=== PATIENT | female | born 1950 | race Caucasian/White ===

== ENCOUNTER 2024-06-30 10:41 | Outpatient (REF) | payer SELFPAY ==
--- OUTSIDE RECORDS SUMMARY | 2024-06-30 12:21 | XMS_ITS | Data Portability ---
Author Organization ID - [facility], [facility] Address [address] [place] [address] Assessment Encounter Date Assessment Date Assessment LastModified by Organization Details LastModified Time 06/11/2024 06/11/2024 Patient seen under general supervision of Dr. Fall who was available but who did not see the patient. HPI: 73-year-old female seen today regarding left lateral hip pain. Patient reports been experiencing difficulty for the past month or so. Patient has similar difficulty more than a year ago and received an injection which worked reasonably well. She denies any recent falls or trauma. Denies pain about the groin. Examination: 73-year-old female in distress alert and oriented. Examination left hip posterior femur warmth noted. Good range of motion without any groin pain elicited. Consultation with the lateral aspect of the overlying greater trochanter noted. Calf is soft. Impression: Trochanteric bursitis left hip Plan: Treatment options were reviewed. Patient faired well with previous cortisone steroid injection. At this time she was offered a repeat injection which accepted was performed today without incident. Postinjection precautions reviewed. Patient also provided with a handout for IT band stretching exercises she will work on her own with. We will formal therapy also discussed. Follow-up concerning this matter on a p.r.n. basis. [facility] speech recognition pmo manager software was used to create portions of this document. An attempt at proofreading has been made to minimize errors. Please call for corrections. [email or web address] Not available 06/11/2024 16:58:41 Plan of Treatment Reminders Order Date Submit Date Provider Last Modified By Organization Details Last Modified Time Details Appointments None recorded. Lab None recorded. Referral physical therapist referral - (THIS PRESCRIPTIO N EXPIRES 30 DAYS FROM DATE LISTED)PHYS ICAL THERAPY REFERRAL S/P SURGERYICD- 10: M70.61 (right), M70.62(Left ), M70.60(Bila teral)1. Core stabilizati on, hip abductor strengtheni ng with focus on eccentric strengtheni ng and balance training.2. Soft tissue modalities including foam rollers as needed.3. Home exercise and stretching program.All ow 2-3 visits a week for 6 weeks.Compl eted by: Loretta 2023 024 [email or web address] [facility], [address] [place], [address], 4 15:02:27 Procedures None recorded. Surgeries None recorded. Imaging XR, hip, unilateral, 2 or 3 view 2023 024 [email or web address] Not available 4 15:02:27 Medication Orders None recorded. Patient TargetsNo targets recorded. Patient InstructionsNo instructions recorded. Reason for Referral Physical Therapist Referral for Trochanteric bursitis of left hip (THIS PRESCRIPTION EXPIRES 30 DAYS FROM DATE LISTED)PHYSICAL THERAPY REFERRAL S/P SURGERYICD-10: M70.61 (right), M70.62(Left), M70.60(Bilateral)1. Core stabilization, hip abductor strengthening with focus on eccentric strengthening and balance training.2. Soft tissue modalities including foam rollers as needed.3. Home exercise and stretching program.Allow 2-3 visits a week for 6 weeks.Completed by: Loretta Referring Physician: Giovanny Roberts, Orthopedic Surgery, [id number] Encounter Date: 05/22/2023 Results Created Date Observation Date Name Description Value Unit Range Abnormal Flag Note LastModifiedBy Organization Detail LastModifiedTime 11/02/19 24 10/09/2020 imagi ng/di agnos tic resul t No observ ation record ed. [email or web address] Not Available 10/04 02:39:22 11/02/19 24 10/07/2020 imagi ng/di agnos tic resul t No observ ation record ed. [email or web address] Not Available 10/04 02:39:23 11/02/19 24 11/10/2020 imagi ng/di agnos tic resul t No observ ation record ed. [email or web address] Not Available 10/04 02:39:28 Result Notes None recorded. Problems Name Problem SNOMED Code Status Onset Date Resolution Date Notes Provider Name and Address Organization Details Recorded Time Pain of right hip joint 755889420692245 Active 2020 Status : 'A'; Not Available [facility] 4 12:12:25 Problem Notes None recorded. Procedures Surgical History Date Name Laterality Status Provider Name and Address Organization Details Recorded Time 5 JZHip Inj completed Blue Garcia PA-C [address], [place], [address], [facility] 06/11/2024 16:57:06 4 Hip Joint/Bursa Aspiration completed Giovanny Roberts MD [address], [place], [address], [facility] 05/22/2023 17:13:25 Imaging Results Imaging Date Name Status LastModified by Organiz ation Details LastModified Time 10/09/2020 imaging/diag nostic result completed Information not available 11/02/2023 02:39:22 10/07/2020 imaging/diag nostic result completed Information not available 11/02/2023 02:39:23 11/10/2020 imaging/diag nostic result completed Information not available 11/02/2023 02:39:28 Procedure Notes None recorded. Medical Equipment None Reported. Allergies Allergen ID Allergen Name Allergen Category Reaction Reaction Severity Criticality Documentation Date Start Date Code Code System Note Provider Name and Address Organization Details Recorded Time 36314 metformin hydrochlo ride medicatio n Not available Not available Not available 05/06/20232016 69735 3 RxNorm Not Available [facility] 4 12:44:57 Medications Name Sig Start Date Stop Date Status Note LastModified by Organization Details LastModified Time amoxicillin 500 mg capsule TAKE 4 CAPS BY MOUTH ONE HOUR PRIOR TO APPOINTMENT active Not Available Not Available Not Available glipizide ER 5 mg tablet, extended release 24 hr TAKE 2 TABLETS BY MOUTH EVERY DAY active Not Available Not Available No t Available clopidogrel 75 mg tablet TAKE 1 TABLET BY MOUTH EVERY DAY active Not Available Not Available No t Available prednisolone acetate 1 % eye drops,suspen reg INSTILL 1 DROP INTO BOTH EYES TWICE A DAY DIRECTED active Not Available Not Available Not Available glipizide ER 2.5 mg tablet, extended release 24 hr TAKE 1 TABLET BY MOUTH TWICE A DAY active Not Available Not Available No t Available levothyroxin e 50 mcg tablet TAKE 2 TABLETS BY MOUTH ON THE WEEKEND AND 1 TABLET ON WEEKDAYS active Not Available Not Available No t Available pseudoephedr ine-guaifene sin ER 80-700 mg tablet,exten ded release 1-2 Tabs every 4-6 hours as needed for pain 2007 active Statu s: 'Curr ent'; Not Available Not Available Not Available brimonidine 0.2 % eye drops INSTILL 1 DROP IN THE LEFT EYE TWICE A DAY active Not Available Not Available Not Available dorzolamide 22.3 mg-timolol 6.8 mg/mL eye drops INSTILL ONE DROP INTO EACH EYE TWICE A DAY active Not Available Not Available Not Available neomycin 3.5 mg/g-polymyx in B 10,000 unit/g-dexam eth 0.1 % eye oint APPLY 1/4 INCH TO BOTH EYES DIRECTED active Not Available Not Available Not Available ezetimibe 10 mg tablet TAKE 1 TABLET BY MOUTH EVERY DAY active Not Available Not Available No t Available rosuvastatin 20 mg tablet TAKE 1 TABLET BY MOUTH EVERY DAY AT BEDTIME active Not Available Not Available No t Available duloxetine 30 mg capsule,taran yed release TAKE 1 CAPSULE BY MOUTH EVERY DAY active Not Available Not Available No t Available oxycodone HCl-oxycodon e-ASA 1 every 4 - 6 hours as needed DO NOT DRIVE WHILE ON THIS MEDICATION 2020 active Statu s: 'Curr ent'; Not Available Not Available Not Available OneTouch Verio test strips USE DIRECTED TO MONITOR GLUCOSE TWICE A DAY active Not Available Not Available Not Available OneTouch Delica Plus Lancet 33 gauge USE DIRECTED TO MONITOR GLUCOSE TWICE A DAY active Not Available Not Available Not Available OneTouch Verio Reflect Meter USE DIRECTED TO MONITOR GLUCOSE TWICE A DAY active Not Available Not Available Not Available Ozempic 1 mg/dose (4 mg/3 mL) subcutaneous pen injector 1 MG SUBCUTANEOU S INJECTION EVERY WEEK,X4 WEEK(S) active Not Available Not Available No t Available Ozempic 0.25 mg or 0.5 mg (2 mg/3 mL) subcutaneous pen injector INJECT 0.5 MG SUBCUTANEOU SLY EVERY WEEK,ROTATE INJECTION SITES active Not Available Not Available No t Available Vitals Date Recorded Body height Body mass index (BMI) Body weight Provider Name and Address Organization Details Last Updated DateTime 05/22/2023 157.48 cm 36.6 kg/m2 13520.47 g LORETTA MANFORD [facility] 05/22/2023 10:07:33 Date Recorded Body height Body mass index (BMI) Body weight Provider Name and Address Organization Details Last Updated DateTime 06/11/2024 157.48 cm 34.6 kg/m2 34652.96 g Chelle Luis Miguel [facility] 06/11/2024 16:14:21 Social History None recorded. Functional Status None recorded. Mental Status None recorded. Family History Nothing Reported. Medical History No medical history recorded. Gynecological HistoryNo gynecological history recorded. Obstetrics History GPAL:G 0 P 0 0 0 0 Past Encounters Encounter ID Performer Location Encounter Start Date Encounter Closed Date Diagnosis/Indication Diagnosis SNOMED-CT Code Diagnosis ICD10 Code Diagnosis Note [id number] MD Gris Crisostomo [address] [place] [id number] 05/22/2023 09:53:55 06/10/2023 15:02:27 Pain of hip region 82261345 M25.559 Trochanter ic bursitis of left hip [id number] 64572 M70.62 [id number] GRE[facility] [address] [place] [id number] 06/11/2024 15:59:06 06/22/2024 11:48:29 Trochanteric bursitis of left hip [id number] 47295 M70.62 Health Concerns Section Related Observation LastModified by Organization Detai ls LastModified Time None Recorded Concern Status LastModified by Organization Details LastModified Time None Recorded Advance Directives Directive None Recorded Payers Encounter Date Sequence Insurance Name Policy Number Policy Florentino Covered Member ID Florentino Member ID Guarantor Name 05/22/2023 1 [employer] (MEDICARE REPLACEMENT PPO) [id number] [place] Kelsy Schaeffer [id number] Kelsy Schaeffer 06/11/2024 1 [employer] (MEDICARE REPLACEMENT PPO) [id number] [place] Kelsy Schaeffer [id number] Kelsy Schaeffer Notes Date Note Type Note Provider Name and Address Organization Details Recorded Time 05/22/2023 text/html PROBLEM:left hip trochanteric bursitis HISTORY:the patient is a 72-year-old female who presents today for evaluation of her left hip. She reports 6 months of ongoing lateral hip pain. She denies any groin pain. She denies any buttock pain. She has a previous total knee performed by Dr. Cazares. She has difficulty sleeping on that side. She has lateral tenderness. The patient's hip symptom profile form was reviewed and included in the record. PFMSH and ROS have been reviewed, updated, and is located in the patient? s chart. PAST MEDICAL HISTORY:Past medical history is significant for diabetes, TIA, anxiety, thyroid disease and glaucoma PAST SURGICAL HISTORY:Past surgical history includes left total knee, right hip bipolar arthroplasty MEDICATIONS:List is available for review in the chart . ALLERGIES:Patient reports an allergy to metformin and Surgical glue. Does not report an allergy to metal, latex, Iodine, tape, or adhesives. SOCIAL HISTORY:the patient is retired. She quit smoking in 1992. She does not consume alcohol or illegal drugs. She is . She sees a dentist regularly. She has stairs at home. PHYSICAL EXAMINATION:Please see vitals recorded below Mental status: Alert and lucid. Normal insight, affect, and grooming.SCHOOL PSYCHOLOGIST: Gross motor coordination is intact. No spasticity or clonus noted.Extremities: Calves are soft and non-tender. Skin intact. Palpable pedal pulses equal bilaterally.Peripher al vascular, lymphatic examination, skin, neurological coordination, reflexes, sensation are within normal limits. ORTHOPEDIC EXAMINATION:Negative SLR tests bilaterally. Full ROM of both knees without pain. the patient has minimal pain with internal/external rotation of her left hip. She has point tenderness laterally, which is reproductive her symptoms. She is a negative Stinchfield test. IMAGING:Previously obtained X-rays reviewed in the office today on [facility] PACS: AP pelvis, Marking AP of the {{right left* bilate ral}} hip, and Direct Lateral of the {{right left* bilate ral}} Hip. Demonstrate mild osteoarthritis of the Left hip. there is appropriately positioned the patient's right bipolar arthroplasty with moderate acetabular arthritis, but without erosion. IMPRESSION:left hip trochannteric bursitis. PLAN:I reviewed with the patient surgical and nonsurgical means to control symptoms. The patient's pain is largely lateral in nature. She is point tenderness over this point over this area. She is difficulty sleeping on that side. I reviewed with her surgical and nonsurgical means to control symptoms. Ultimately, I recommended we proceed initially with an intrabursal injection. We will follow that up with a short course of physical therapy for stretching and strengthening. She understands she repeat corticosteroid as often as every 3 months. The patient knows I will be happy to meet with them again at any time in order to review any additional questions or concerns that they might have. Patient was satisfied with this plan. I attempted to answer all of the patient's questions. [facility] speech recognition pmo manager software was used to create portions of this document. An attempt at proofreading has been made to minimize errors. Please call for corrections. Giovanny Roberts MD [address] [place] [address] [address], [place], [address], [facility] [place] [facility] 05/22/2023 17:19:40 OBGyn Episode No OBEpisode recorded.
--- OUTSIDE RECORDS SUMMARY | 2024-06-30 12:21 | XMS_ITS | Clinical Summary ---
Author Organization [facility] Address [address] [place] [address] Care Team Providers Care Grinding Wheel Facer Name Role Phone Brigitte Conn MD Primary Care Provider [phone] Allergies Active Allergy Reactions Criticality Noted Date Comments Atorvastatin Other (See Comments) 02/08/2016 Metformin And Related Anaphylaxis High 10/07/2020 Medications Medication Sig Dispensed Refills Start Date End Date Status ALPRAZolam (XANAX) 0.5 MG tablet TAKE 1 TAB(S) TWICE DAILY NEEDED FOR ANXIETY 0 09/20/2020 Active brimonidine (ALPHAGAN) 0.2 % ophthalmic solution Place 1 drop into the left eye 2 (two) times a day. 0 09/14/2020 Active clopidogrel (PLAVIX) 75 MG tablet Take 1 tablet by mouth daily. 0 04/20/2020 Active dorzolamide-timolol (COSOPT) 22.3-6.8 MG/ML ophthalmic solution Place 1 drop into both eyes daily. 0 09/27/2020 Active levothyroxine (SYNTHROID) tablet 75 mcg Take 1 tablet by mouth daily. 0 03/20/2018 Active Multiple Vitamin (Multi Vitamin) TABS Take by mouth. 0 Active rosuvastatin (CRESTOR) tablet 20 mg Take 20 mg by mouth daily. 0 09/20/2020 Active meloxicam (MOBIC) 15 MG tablet Take 1 tablet (15 mg total) by mouth daily. 30 tablet 3 06/12/2021 Active Active Problems Problem Noted Date Diagnosed Date Pain in hip region after hip replacement 022 Status post hip replacement, right 11/03/2020 Traumatic complete tear of right rotator cuff Resolved Problems Problem Noted Date Diagnosed Date Resolved Date Hip fracture requiring opera tive repair, right, closed, initial encounter 10/07/2020 021 Social History Tobacco Use Types Packs/Day Years Used Date Smoking Tobacco: Former Smokeless Tobacco: Never Alcohol Use Standard Drinks/Week Comments Not Currently 0 (1 standard drink = 0.6 oz pur e alcohol) Sex and Gender Information Value Date Recorded Sex Assigned at Female 10/07/2020 9:12 PM EDT Gender Identity Not on file Sexual Orientation Not on file Job Start Date Occupation Industry Not on file Not on file Not on file Last Filed Vital Signs Vital Sign Reading Time Taken Comments Blood Pressure 139/76 10/11/2020 7:40 AM EDT Pulse 72 07/10/2021 1:39 PM EDT Temperature 36.4 ??C (97.5 ??F) 07/10/2021 1:39 PM ED T Respiratory Rate 20 10/11/2020 7:40 AM EDT Oxygen Saturation 92% 10/11/2020 8:15 AM EDT Inhaled Oxygen Concentration - - Weight 89.8 kg (198 lb) 07/10/2021 1:39 PM EDT Height 157.5 cm (5' 2 ) 07/10/2021 1:39 PM EDT Body Mass Index 36.21 07/10/2021 1:39 PM EDT Plan of Treatment Health Maintenance Due Date Last Done Comments Hepatitis C Screening 1949 Depression Screening 1961 BMI Counseling 12/04/1967 Diabetes: Eye Exam (No Retinopathy) 12/04/1967 Diabetes: Foot Exam 12/04/1967 Diabetes: Microalbumin Test 12/04/1967 Preventative Health Evaluation 12/04/1967 Colon Cancer Screening (Colonoscopy) 1994 Breast Cancer Screening (Mammogram) 12/04/1999 Fall Risk Assessment 2014 Osteoporosis Screening (DEXA Scan) 2014 Hemoglobin A1C Due 04/10/2021 10/08/2020 COVID-19 Vaccine ( season) 2023 12/27/2020, 06/10/2020, 05/20/2020 Influenza Vaccine (#1) 2023 , 11/20/2019, 11/20/2019, Additional history exists DTap / Tdap / Td (3 - Td or Tdap) 08/17/2024 08/17/2014, 12/02/2010, 01/09/2005 RSV Adult > 60+ Yrs or (1 - 1-dose 75+ series) 2024 Pneumococcal Vaccine Completed 01/29/2017, 08/19/2015, 08/18/2014, Additional history exists Shingrix-Zoster Vaccine Completed 06/02/2021, 02/16 Hepatitis B Vaccines Aged Out No long er eligible based on patient's age to complete this topic RSV Ped < 20 months Aged Out No longe r eligible based on patient's age to complete this topic Medical Devices Implanted Type Area General Cleaner Device Identifier Shelf Expiration Date Model / Serial / Lot Uhr Wh[place]ore Head Bipolar Component Implanted:Qty: 1 on 10/09/2020 by Rafael Best MD at [facility] Location Total Joint Right: Hip [facility] 06/07/2025 [id number] / / [id number] Size 4 Accolade Ii 127 Deg Stry-How [id number] - [id number] Implanted:Qty: 1 on 10/09/2020 by Rafael Best MD at [facility] Location Total Joint Right: Hip [facility] 08/29/2025 [id number] / / [id number] Hip Hd Cocr V40 Lfit 26mm 0 Stry-How [id number] - [id number] Implanted:Qty: 1 on 10/09/2020 by Rafael Best MD at [facility] Location Total Joint Right: Hip [facility] 08/10/2025 [id number] / / [id number] Advance Directives For more information, please contact: [phone] Latest Code Status on File Code Status Date Activated Date Inactivated Comments Full Code 10/09/2020 8:35 AM 10/11/2020 8:44 PM This c ode status was ascertained in the following way: discussion with patient . Code Status History Code Status Date Activated Date Inactivated Comments Full Code 10/08/2020 12:19 AM 10/09/2020 8:35 AM This c ode status was ascertained in the following way:discussed . Care Teams Grinding Wheel Facer Relationship Specialty Start Date End Date Brigitte Conn MD PCP - General Internal Medicine 10/07/20
--- OUTSIDE RECORDS SUMMARY | 2024-06-30 12:21 | XMS_ITS | Data Portability ---
Author Organization [facility] Main Office Address [address] 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 Plan of Treatment Reminders Order Date Submit Date Provider Last Modified By Organization Details Last Modified Time Details Appointments None record ed. Lab hemogl obin A1C, finger stick 2015 016 [email or web address] In-Office Order, Internal Use Only DO Not Attach Compendium DO Not Attach Compendium, Do Not Delete/merge, [id number] 6 16:09:39 strept ococcu s group A, cultur e, isolat e 2015 016 [email or web address] Not available 6 09:48:23 rapid strep group A, throat 2015 016 [email or web address] In-Office Order, Internal Use Only DO Not Attach Compendium DO Not Attach Compendium, Do Not Delete/merge, [id number] 6 16:48:03 T4, free, serum - copy all labs to Dr Danitza estevez 2015 016 MONICA Not available 6 12:47:04 TSH, serum or plasma - copy all labs to Dr Danitza estevez 2015 016 MONICA Not available 6 12:47:04 ALT (doug chang), serum or plasma 2015 016 [email or web address] Not available 6 13:10:39 lipid panel, serum 2015 MONICA Not available 6 12:42:21 ALT (doug chavez eugenio chang), serum or plasma 2015 016 MONICA Not available 6 12:42:21 CK (creat ine kinase ), total, serum 2015 016 MONICA Not available 6 12:42:22 Referral pulmon ologis t referr al - strong FH of lung cancer / hx of smokin g 30 yrs ago/pt wants to d/w pulmon amarjit LORD her option s 2015 MONICA [facility] Pulmonary & Critical Care Medicine, [address], [place], [address], 6 08:14:25 Procedures nebuli zer treatm ent (PROC) 2015 016 [facility] In-Office Order, Internal Use Only DO Not Attach Compendium DO Not Attach Compendium, Do Not Delete/merge, 6 16:54:36 Surgeries None record ed. Imaging x-ray, chest, 2 view - cough, shortn ess of breath , rule out pneumo onia, inters titial proces s, CHF 2015 016 [facility] In-Office Order, Internal Use Only DO Not Attach Compendium DO Not Attach Compendium, Do Not Delete/merge, 6 16:54:36 electr ocardi ogram 2015 016 [facility] In-Office Order, Internal Use Only DO Not Attach Compendium DO Not Attach Compendium, Do Not Delete/merge, 6 16:54:36 Medication Orders flutic asone propio bharati 50 mcg/ac tuatio n nasal spray, suspen reg 2015 016 [facility], [address] [place], [address], 6 16:54:37 ProAir RespiC lick 90 mcg/ac tuatio n breath activa toni 2015 016 [facility] No Pharmacy On File - Paper Print Out, No RX On File, [id number] 6 16:54:37 ProAir HFA 90 mcg/ac tuatio n aeroso l inhale r 2015 016 [facility] No Pharmacy On File - Paper Print Out, No RX On File, [id number] 6 16:54:37 Cherat ussin AC 10 mg-100 mg/5 mL oral liquid 2015 016 [email or web address] [facility], [address] [place] [address], [address], 6 16:28:53 amoxic illin 875 mg tablet 2015 016 [email or web address] [facility], [address] [place], [address], 6 14:15:33 Flonas e Allerg y Relief 50 mcg/ac tuatio n nasal spray, suspen reg 2015 016 INTERFACE [facility], [address] [place] [address], [address], 6 16:48:05 Aspir- Low 81 mg tablet ,delay ed releas e 2015 016 mdalessandro [facility], [address], [place], [address], 6 17:15:47 pravas tatin 10 mg tablet 2015 016 mdalessandro [facility], [address], [place], [address], 6 17:15:46 Patient Targets Encounter Date Encounter Id Patient Goals Patient Target Last Modified By Organization Details Last Modified Time 05/12/2015 [id number] Ongoing of Microalbumin/Cr eatinine Ratio yearly Not available Not available Not available Ongoing of Blood Pressure 140 / 90 Not available Not available Not available Ongoing of Hemoglobin A1C 2 times per yr Not available Not available Not available Ongoing of Hemoglobin A1C <7 Not available Not available Not available Ongoing of LDL Direct <100 Not available Not available Not available Ongoing of Cholesterol, LDL <100 Not available Not available Not available Pt advised and agrees to do moderate exercise (such as walking) for approximately 150 minutes per week; to decrease carbohydrate intake (25 % of total carbohydrates or less); and to monitor blood glucose as directed Will bring meter and/or readings to appointments. [email or web address] Not available 05/12/2015 17:15:47 Patient Instructions Encounter Date Encounter Id Patient Instructions Last Modified By Organization Details Last Modified Time 05/12/2015 [id number] Medications/OTC/ herbal therapies/supple ments were reviewed at this visit with patient and or caregiver and reconciled. Medications /OTC/herbal therapies/supple ments reviewed with patient and or caregiver, including potential side effects, drug interactions, instructions for taking, and the consequences of not taking medication. Discuss with patient to determine any barriers to medication adherence such as side effects from medication or cost of medication. [email or web address] Not available 05/12/2015 15:48:17 06/22/2015 [id number] sore throat: care instructions [email or web address] Not available 06/22/2015 16:48:03 06/27/2015 [id number] Medications (OTC, herbal therapies, supplements) reviewed and reconciled with patient and or caregiver, including potential side effects, drug interactions, instructions, and the consequences of not taking medication. Reviewed potential barriers to medication adherence, such as side effects from medication or cost of medication. mdalessandro Not available 06/27/2015 15:58:39 08/03/2015 [id number] allergies: care instructions [email or web address] Not available 08/11/2015 16:54:36 managing your allergies: care instructions [email or web address] Not available 08/11/2015 16:54:36 cough: care instructions [email or web address] Not available 08/11/2015 16:54:36 08/19/2015 [id number] Lung Cancer Screening mdalessandro Not available 08/19/2015 15:05:16 Medications (OTC, herbal therapies, supplements) reviewed and reconciled with patient and or caregiver, including potential side effects, drug interactions, instructions, and the consequences of not taking medication. Reviewed potential barriers to medication adherence, such as side effects from medication or cost of medication. 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 F amily history of malignant neoplasm of lung strong FH of lung cancer/ hx of smoking 30 yrs ago/pt wants to d/w pulmonary MD her options Referring Physician: Jessie Funes, Internal Medicine, Encounter Date: 08/19/2015 Results Created Date Observation Date Name Description Value Unit Range Abnormal Flag Note LastModifiedBy Organization Detail LastModifiedTime 08/03/19 16 08/04/2015 nebul izer treat ment (PROC ) Improvement after Treatment Not Available In-Off ice Order Internal Use Only DO Not Attach Compendium DO Not Attach Compendium, Do Not Delete/merge, [id number] 08/03/2015 14:49:13 08/03/19 16 08/03/2015 elect rocar diogr am Rate & Rhythm Not Available In-Off ice Order Internal Use Only DO Not Attach Compendium DO Not Attach Compendium, Do Not Delete/merge, [id number] 08/03/2015 14:30:05 08/03/19 16 08/03/2015 elect rocar diogr am QRS Not Available In-Office Order Internal Use Only DO Not Attach Compendium DO Not Attach Compendium, Do Not Delete/merge, [id number] 08/03/2015 14:30:05 08/03/19 16 08/03/2015 elect rocar diogr am NM Interval Not Available In-Off ice Order Internal Use Only DO Not Attach Compendium DO Not Attach Compendium, Do Not Delete/merge, [id number] 08/03/2015 14:30:05 08/03/19 16 08/03/2015 elect rocar diogr am QRS Duration Not Available In-Of fice Order Internal Use Only DO Not Attach Compendium DO Not Attach Compendium, Do Not Delete/merge, [id number] 08/03/2015 14:30:05 08/03/19 16 08/03/2015 elect rocar diogr am QT Interval Not Available In-Off ice Order Internal Use Only DO Not Attach Compendium DO Not Attach Compendium, Do Not Delete/merge, [id number] 08/03/2015 14:30:05 06/27/19 16 06/27/2015 hemog lobin A1C, beth hicks k HA1C 8.9 % 4-6 Not Available In-Office Order Internal Use Only DO Not Attach Compendium DO Not Attach Compendium, Do Not Delete/merge, [id number] 06/27/2015 15:58:39 06/22/19 16 06/22/2015 rapid strep group A, throa t Strep negati ve Not Available In-Office Order Internal Use Only DO Not Attach Compendium DO Not Attach Compendium, Do Not Delete/merge, 06/22/2015 16:03:32 05/28/19 16 05/28/2015 ALT (thea ine amino trans feras e), serum or plasm a ALT 11 U/L (0-31) Not Available [facility] (Centralized Electronic Ordering - All Locations) Patient Can Go To The Location Of Their Choice, 05/28/2015 12:42:21 05/28/1905/28/2015 lipid panel , serum cholesterol, total 181 mg/dL (<200) Not Available [facility] (Centralized Electronic Ordering - All Locations) Patient Can Go To The Location Of Their Choice, 05/28/2015 12:42:21 05/28/19 16 05/28/2015 lipid panel , serum triglyceride 189 mg/dL (<150) high Not Available [facility] (Centralized Electronic Ordering - All Locations) Patient Can Go To The Location Of Their Choice, 05/28/2015 12:42:21 05/28/19 16 05/28/2015 lipid panel , serum HDL chol 53 mg/dL (>39) Not Available [facility] (Centralized Electronic Ordering - All Locations) Patient Can Go To The Location Of Their Choice, 05/28/2015 12:42:21 05/28/19 16 05/28/2015 lipid panel , serum LDL cholesterol, calculated 90 mg/dL (0-130 ) Not Available [facility] (Centralized Electronic Ordering - All Locations) Patient Can Go To The Location Of Their Choice, 05/28/2015 12:42:21 05/28/19 16 05/28/2015 lipid panel , serum non HDL cholesterol (calc) 128 mg/dL (<160) Not Available [facility] (Centralized Electronic Ordering - All Locations) Patient Can Go To The Location Of Their Choice, 05/28/2015 12:42:21 05/28/19 16 05/28/2015 CK (crea sophia kinnisa e), total , serum CK,total only 87 U/L (0-190 ) Not Available [facility] (Centralized Electronic Ordering - All Locations) Patient Can Go To The Location Of Their Choice, 05/28/2015 12:42:22 05/28/19 16 05/28/2015 T4, free, serum free T4 0.88 NG/dL (0.70- 1.80) Not Available [facility] (Centralized Electronic Ordering - All Locations) Patient Can Go To The Location Of Their Choice, 05/28/2015 12:47:04 05/28/19 16 05/28/2015 TSH, serum or plasm a TSH 2.66 mIU/m L (0.40- 4.00) Not Available [facility] (Centralized Electronic Ordering - All Locations) Patient Can Go To The Location Of Their Choice, 05/28/2015 12:47:04 06/22/19 16 06/22/2015 strep tococ cus group A, tl stanley specimen description THROAT SWAB Not Available [facility] (Centralized Electronic Ordering - All Locations) Patient Can Go To The Location Of Their Choice, 06/24/2015 07:31:05 06/22/19 16 06/22/2015 strep tococ cus group A, tl stanley special requests NONE Not Available [facility] (Centralized Electronic Ordering - All Locations) Patient Can Go To The Location Of Their Choice, 06/24/2015 07:31:05 06/22/19 16 06/24/2015 strep tococ cus group A, tl stanley culture NO GROUP A BETA HEMOLY TIC STREPT OCOCCI ISOLAT ED Not Available [facility] (Centralized Electronic Ordering - All Locations) Patient Can Go To The Location Of Their Choice, 06/24/2015 07:31:05 06/22/19 16 06/24/2015 strep tococ cus group A, cultu re, throa t report status FINAL 2015 Not Available [facility] (Centralized Electronic Ordering - All Locations) Patient Can Go To The Location Of Their Choice, [id number] 06/24/2015 07:31:05 06/03/19 16 06/01/2015 vivianai jamel/sheila husain tic resul t No observ ation record ed. [facility] ([place] [facility] Only) [address], [place], [address], 06/22/2015 16:48:04 08/03/19 16 08/03/2015 chest 2 views front al and lat Chest 2 Views Fronta l and Lat INDICA TION: cough, sob CLINIC AL QUESTI ON: Pneumo johan COMPAR VANITA: None. FINDIN GS: LINES AND TUBES: None. LUNGS AND PLEURA : Hazy opacit ies are noted in the LEFT upper lobe and also LEFT lower lobe. No effusi on or pneumo thorax . HEART, MEDIAS TINUM AND DAVID: Normal . BONES AND SOFT TISSUE S: No acute findin gs. IMPRES REG: Hazy opacit ies in the LEFT upper lobe and LEFT lower lobe which may reflec t early pneumo johan. A [place] kierra ding has been commun icated via the [place] system on 08/03/19 16 4:17 PM, [place] e [place] [id number]. WSN: [id number] Dictat ed By: Peggy Ortiz MD, V Dictat ed Date/T tolu: 4:17 pm Review ed By: Peggy Ortiz MD, V Signed By: Peggy Ortiz MD, V Signed Date/T tolu: 4:17 pm Transc ribed By: BRITTA Transc ribed Date/T tolu: 4:17 pm Patien t Class: Outpat ient [email or web address] [facility] (Centralized Electronic Ordering - All Locations) Patient Can Go To The Location Of Their Choice, [id number] 08/11/2015 16:54:37 08/03/19 16 08/03/2015 chest 2 views front al and lat Chest 2 Views Fronta l and Lat INDICA TION: cough, sob CLINIC AL QUESTI ON: Pneumo johan COMPAR VANITA: None. FINDIN GS: LINES AND TUBES: None. LUNGS AND PLEURA : Hazy opacit ies are noted in the LEFT upper lobe and also LEFT lower lobe. No effusi on or pneumo thorax . HEART, MEDIAS TINUM AND DAVID: Normal . BONES AND SOFT TISSUE S: No acute findin gs. IMPRES REG: Hazy opacit ies in the LEFT upper lobe and LEFT lower lobe which may reflec t early pneumo johan. A [place] kierra ding has been commun icated via the [place] system on 08/03/19 16 4:17 PM, Kierra ding ID [id number]. WSN: [id number] Dictat ed By: Peggy Ortiz MD, V Dictat ed Date/T tolu: 4:17 pm Review ed By: Peggy Ortiz MD, V Signed By: Peggy Ortiz MD, V Signed Date/T tolu: 4:17 pm Transc ribed By: BRITTA Transc ribed Date/T tolu: 4:17 pm Patien t Class: Outpat ient lu [email or web address] [facility] (Outpt Imaging) [address] , [place], [address], 08/11/2015 16:54:37 08/03/19 16 08/03/2015 x-ray , chest , 2 view No observ ation record ed. lu rodgers Not Available 08/11/2015 16:54:37 08/09/19 16 elect rocar diogr am No observ ation record ed. [email or web address] In-Office Order Internal Use Only DO Not Attach Compendium DO Not Attach Compendium, Do Not Delete/merge, [id number] 08/11/2015 16:54:37 08/13/19 16 08/13/2015 chest 2 views front al and lat Chest 2 Views Fronta l and Lat INDICA TION: abnorm al findin gs prior xray COMPAR VANITA: August 03, 2015 FINDIN GS: LINES AND TUBES: None. LUNGS AND PLEURA : There has been interv al improv ement in the previo usly descri bed left upper and lower lobe hazy opacit ies. A linear opacit y in the left mid to lower lung is probab ly subseg mental atelec tasis or scarri ng. No new focal consol idatio n. No effusi on or pneumo thorax . HEART, MEDIAS TINUM AND DAVID: Normal . BONES AND SOFT TISSUE S: No acute findin gs. IMPRES REG: Since August 03, 2015: 1. Marked interv al improv ement in the previo usly descri bed left upper and lower lobe opacit ies which may reflec t early pneumo johan. 2. Linear subseg mental atelec tasis or scarri ng in the left mid to lower lung. No new focal consol idatio n. WSN: [id number] Dictat ed By: Cara Coello MD Dictat ed Date/T tolu: 9:03 am Review ed By: Cara Coello MD Signed By: Cara Coello MD Signed Date/T tolu: 9:03 am Transc ribed By: BRITTA Transc ribed Date/T tolu: 9:03 am Patien t Class: Outpat ient [email or web address] [facility] (Centralized Electronic Ordering - All Locations) Patient Can Go To The Location Of Their Choice, [id number] 08/19/2015 15:21:49 08/13/19 16 08/13/2015 chest 2 views front al and lat Chest 2 Views Fronta l and Lat INDICA TION: abnorm al findin gs prior xray COMPAR VANITA: August 03, 2015 FINDIN GS: LINES AND TUBES: None. LUNGS AND PLEURA : There has been interv al improv ement in the previo usly descri bed left upper and lower lobe hazy opacit ies. A linear opacit y in the left mid to lower lung is probab ly subseg mental atelec tasis or scarri ng. No new focal consol idatio n. No effusi on or pneumo thorax . HEART, MEDIAS TINUM AND DAVID: Normal . BONES AND SOFT TISSUE S: No acute findin gs. IMPRES REG: Since August 03, 2015: 1. Marked interv al improv ement in the previo usly descri bed left upper and lower lobe opacit ies which may reflec t early pneumo johan. 2. Linear subseg mental atelec tasis or scarri ng in the left mid to lower lung. No new focal consol idatio n. WSN: [id number] Dictat ed By: Cara Coello MD Dictat ed Date/T tolu: 9:03 am Review ed By: Cara Coello MD Signed By: Cara Coello MD Signed Date/T tolu: 9:03 am Transc ribed By: BRITTA Transc ribed Date/T tolu: 9:03 am Patien t Class: Outpat ient [email or web address] [facility] (Outpt Imaging) [address] [place], [address], 08/19/2015 15:21:50 06/08/19 17 06/05/2016 MAMMO , scree dillon, bilat eral No observ ation record ed. [email or web address] [facility] ([place] [facility] Only) [address] [place], [address], 06/15/2016 11:27:51 Result Notes None recorded. Problems Name Problem SNOMED Code Status Onset Date Resolution Date Notes Provider Name and Address Organization Details Recorded Time Abdomina l pain 15275593 Completed 201209/22/2013 STORY: RLQ PAIN PAST FEW DAYS, WORSE WITH MOVEMENT . NO F/C, NO CHANGE IN BOWELS, NO VOMITING , NO URINARY SXS. UTD COLONOSC OPY, NO HX OF DIVERTIC ULOSIS. NO HX OF KIDNEY STONES. WILL CHECK LABS, PT AWARE TO CALL OR SEEK MORE IMMEDIAT E ATTN VIA ER FOR WORSENIN G SXS.; IMPRESSI ON: MILD ELEVATIO N OF SED RATE (33) AND CRP (0.9). ABDO CT W/EVIDEN CE OF DIVERTIC ULOSIS, NO DIVERTIC ULITIS. NO ACUTE ABNLS. PT STILL WITH PAIN. 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/U SOON; RECORDED 07/31/19 14 2:28PM BY ROSALINDA MURRAY MA, OFFICE VISIT Jessie marie null, [facility] 6 14:51:33 Screenin g for malignan t neoplasm of breast Completed 201209/22/2013 RECORDED 07/18/19 13 2:40PM BY KATHYA CONNELLY MA, JOSE ALBERTO ON/ADDEN DUM Jessie D'Alessan frank null, [facility] 6 14:51:34 Screenin g for malignan t neoplasm of cervix Completed 201209/22/2013 RECORDED 07/18/19 13 2:40PM BY KATHYA CONNELLY MA, JOSE ALBERTO ON/ADDEN DUM Jessie D'Alessan frank null, [facility] 6 14:51:34 Screenin g for malignan t neoplasm of colon Active 2013 Jessie Willard'Benjamin marie null, [facility] 6 14:51:34 Cough 83478676 Completed 201209/22/2013 RECORDED 07/18/19 13 2:40PM BY KATHYA CONNELLY MA, JOSE ALBERTO ON/ADDEN DUM Jessie marie null, [facility] 6 14:51:33 Uncontro lled type 2 diabetes mellitus 983805912 Active 2013 Jessie marie null, [facility] 6 14:51:33 Respirat ory finding 536152244 Completed 201209/22/2013 RECORDED 07/18/19 13 2:40PM BY KATHYA CONNELLY MA, ANNOTATI ON/ADDEN DUM Jessie marie null, [facility] 6 14:51:34 Elevated blood-pr essure reading without diagnosi s of hyperten reg 990328688 Active 2013 Jessie marie mary, [facility] 6 14:51:33 Risk of exposure to communic able disease 733538680 Completed 201209/22/2013 RECORDED 12/20/19 13 3:08PM BY KATHYA CONNELLY MA, ANNOTCLARY ON/ADDEN DUM Jessie marie null, [facility] 6 14:51:33 Swelling of structur e of eye 02470466 Completed 201209/22/2013 RECORDED 07/18/19 13 2:39PM BY KATHYA CONNELLY MA, ANNOTCLARY ON/ADDEN DUM Jessie marie null, [facility] 6 14:51:34 Malaise and fatigue 247973212 Completed 201209/22/2013 RECORDED 07/18/19 13 2:40PM BY KATHYA CONNELLY MA, ANNOTATI ON/ADDEN DUM Jessie marie null, [facility] 6 14:51:33 Influenz a vaccine needed 04628138226 06 Completed 200909/22/2013 RECORDED 01/11/20 10 3:36PM BY SHAYAN ZUÑIGA I, HISTORIC AL SUMMARY Jessie hernandez, [facility] 6 14:51:33 Uncontro lled type 2 diabetes mellitus 385392269 Completed 200909/22/2013 DATE: 02/16/20 10; STORY: LEFT MESSAGE FOR PT TO RETURN MY CALL; RECORDED 07/18/19 13 2:39PM BY KATHYA CONNELLY MA, ANNOTATI ON/ADDEN DUM Jessie ChaneyAleanaliaan frank null, [facility] 6 14:51:33 Foreign body in skin of foot 237104772 Completed 201209/22/2013 RECORDED 07/18/19 13 2:40PM BY KATHYA CONNELLY MA, ANNOTATI ON/ADDEN DUM Jessie Willard'Aleanaliaan frank null, [facility] 6 14:51:33 Adult health examinat ion Completed 201209/22/2013 RECORDED 12/20/19 13 3:08PM BY KATHYA CONNELLY MA, JOSE ALBERTO ON/ADDEN DUM Jessie Tejadaan frank null, [facility] 6 14:51:34 General examinat ion of patient Completed 201209/22/2013 RECORDED 07/18/19 13 2:40PM BY KATHYA CONNELLY MA, ANNOTATI ON/ADDEN DUM Jessie Millan frank null, [facility] 6 14:51:34 Hyperlip idemia 10837703 Active 2013 Jessie hernandez [facility] 6 14:51:33 Hypothyr oidism 90923581 Active 2013 STORY: LEVOTHYR OXINE 25 MCG PER ENDO; RECORDED 07/31/19 14 2:28PM BY ROSALINDA MURRAY MA, OFFICE VISIT Jessie hernandez [facility] 6 14:51:33 Insomnia 571837688 Active 2013 Jessie hernandez [facility] 6 14:51:33 Single major depressi ve episode Active 2013 Jessie D'Alessan frank null, [facility] 6 14:51:33 Heart murmur 63281450 Active 2013 Jessie hernandez, [facility] 6 14:51:33 Disorder of upper respirat ory system 393021560 Completed 201209/22/2013 IMPRESSI ON: ETIOLOGY UNCLEAR, NL EXAM TODAY.; RECORDED 07/18/19 13 2:40PM BY KATHYA CONNELLY MA, ANNOTATI ON/ADDEN [facility] Jessie hernandez [facility] 6 14:51:34 Active or passive immuniza tion Completed 201109/22/2013 RECORDED 07/17/19 12 4:00PM BY JESSIE MARIE MD, OFFICE VISIT Jessie hernandez [facility] 6 14:51:33 Patient status finding [id number] Completed 201209/22/2013 RECORDED 12/20/19 13 3:08PM BY KATHYA CONNELLY MA, ANNOTATI ON/ [facility] Jessie hernandez [facility] 6 14:51:33 Obesity 094702814 Active 2013 Jessie hernandez [facility] 6 14:51:33 Osteoart hritis of knee 098471288 Active 2013 STORY: PAIN IMPROVED S/P BILAT TKR; RECORDED 07/31/19 14 2:28PM BY ROSALINDA MURRAY MA, OFFICE VISIT Jessie hernandez [facility] 6 14:51:33 Pre-surg earnest evaluati on Completed 201209/22/2013 RECORDED 07/18/19 13 2:40PM BY KATHYA CONNELLY MA, ANNOTATI ON/ADDEN [facility] Jessie hernandez [facility] 6 14:51:34 Eruption [id number] Completed 201209/22/2013 STORY: NEG DERM W/U/DEMO S/ NONITCHY , NO TX NEEDED; RECORDED 07/18/19 13 2:40PM BY KATHYA CONNELLY MA, ANNOTATI ON/[facility] Jessie ChaneyBenjamin marie mary, [facility] 6 14:51:33 Acquired trigger finger 6636861 Completed 201209/22/2013 RECORDED 07/18/19 13 2:39PM BY KATHYA CONNELLY MA, ANNOTATI ON/[facility] Jessie ChaneyFainaperfecto frank mary, [facility] 6 14:51:33 Hearing loss 77158777 Active 2013 Jessie hernandez [facility] 6 14:51:33 Acute upper respirat ory infectio n 62550699 Completed 201209/22/2013 RECORDED 07/18/19 13 2:40PM BY KATHYA CONNELLY MA, ANNOTATI ON/[facility] Jessie ChaneyStephaniecruz frank mary, [facility] 6 14:51:33 Urinary tract infectio us disease 72002671 Completed 201209/22/2013 RECORDED 07/18/19 13 2:40PM BY KATHYA CONNELLY MA, ANNOTATI ON/[facility] Jessie MontseNevincruz frank mary, [facility] 6 14:51:33 Exposure to organism Active 2013 Jessie hernandez [facility] 6 14:51:33 Abdomina l pain 85460132 Completed 201210/12/2013 STORY: RLQ PAIN PAST FEW DAYS, WORSE WITH MOVEMENT . NO F/C, NO CHANGE IN BOWELS, NO VOMITING , NO URINARY SXS. UTD COLONOSC OPY, NO HX OF DIVERTIC ULOSIS. NO HX OF KIDNEY STONES. WILL CHECK LABS, PT AWARE TO CALL OR SEEK MORE IMMEDIAT E ATTN VIA ER FOR WORSENIN G SXS.; IMPRESSI ON: MILD ELEVATIO N OF SED RATE (33) AND CRP (0.9). ABDO CT W/EVIDEN CE OF DIVERTIC ULOSIS, NO DIVERTIC ULITIS. NO ACUTE ABNLS. PT STILL WITH PAIN. TO GI FOR FURTHER EVAL.; RECORDED 07/18/19 13 2:39PM BY KATHYA CONNELLY MA, ANNOTATI ON/ADDEN DUM Jessie D'Alessan frank null, [facility] 6 14:51:33 Acute maxillar y sinusiti s [id number] Completed 201210/12/2013 RECORDED 07/18/19 13 2:40PM BY KATHYA CONNELLY MA, ANNOTATI ON/ADDEN DUM Jessie D'Alessan frank null, [facility] 6 14:51:33 Acute pharyngi tis [id number] Completed 201210/12/2013 RECORDED 07/18/19 13 2:40PM BY KATHYA CONNELLY MA, ANNOTATI ON/ADDEN DUM Jessie D'Alessan frank null, [facility] 6 14:51:33 Screenin g for malignan t neoplasm of breast Completed 201210/12/2013 RECORDED 07/18/19 13 2:40PM BY KATHYA CONNELLY MA, ANNOTATI ON/ADDEN DUM Jessie D'Alessan frank null, [facility] 6 14:51:34 Screenin g for malignan t neoplasm of cervix Completed 201210/12/2013 RECORDED 07/18/19 13 2:40PM BY KATHYA CONNELLY MA, ANNOTATI ON/ADDEN DUM Jessie D'Alessan frank null, [facility] 6 14:51:34 Screenin g for malignan t neoplasm of colon Completed 201310/12/2013 RECORDED 07/31/19 14 2:28PM BY ROSALINDA MURRAY MA, ANNOTATI ON/ADDEN DUM Jessie D'Alessan frank null, [facility] 6 14:51:34 Cough [id number] Completed 201210/12/2013 RECORDED 07/18/19 13 2:40PM BY KATHYA CONNELLY MA, JOSE ALBERTO ON/ADDEN DUM Jessie D'Alessan frank null, [facility] 6 14:51:33 Respirat ory finding [id number] Completed 201210/12/2013 RECORDED 07/18/19 13 2:40PM BY KATHYA CONNELLY MA, JOSE ALBERTO ON/ADDEN DUM Jessie D'Alessan frank null, [facility] 6 14:51:34 Risk of exposure to communic able disease [id number] Completed 201210/12/2013 RECORDED 12/20/19 13 3:08PM BY KATHYA CONNELLY MA, JOSE ALBERTO ON/ADDEN DUM Jessie Montse'Alessan frank null, [facility] 6 14:51:33 Swelling of structur e of eye 09994196 Completed 201210/12/2013 RECORDED 07/18/19 13 2:39PM BY KATHYA CONNELLY MA, JOSE ALBERTO ON/ADDEN DUM Jessie Montse'Alessan frank null, [facility] 6 14:51:34 Malaise and fatigue 538729665 Completed 201210/12/2013 RECORDED 07/18/19 13 2:40PM BY KATHYA CONNELLY MA, JOSE ALBERTO ON/ADDEN DUM Jessie Montse'Alessan frank null, [facility] 6 14:51:33 Influenz a vaccine needed [id number] 06 Completed 200910/12/2013 RECORDED 01/11/20 10 3:36PM BY SHAYAN ZUÑIGA I, HISTORIC AL SUMMARY Jessie Willard'Alessan frank null, [facility] 6 14:51:33 Foreign body in skin of foot 660810032 Completed 201210/12/2013 RECORDED 07/18/19 13 2:40PM BY KATHYA CONNELLY MA, JOSE ALBERTO ON/ADDEN DUM Jessie D'Alessan frank null, [facility] 6 14:51:33 Adult health examinat ion Active 2013 Jessie marie null, [facility] 6 14:51:34 General examinat ion of patient Completed 201210/12/2013 RECORDED 07/18/19 13 2:40PM BY KATHYA CONNELLY MA, ANNOTATI ON/ADD DUM Jessie Millan frank null, [facility] 6 14:51:34 Disorder of upper respirat ory system [id number] Completed 201210/12/2013 IMPRESSI ON: ETIOLOGY UNCLEAR, NL EXAM TODAY.; RECORDED 07/18/19 13 2:40PM BY KATHYA CONNELLY MA, ANNOTATI ON/ Jessie Millan frank null, [facility] 6 14:51:34 Active or passive immuniza tion Completed 201110/12/2013 RECORDED 07/17/19 12 4:00PM BY JESSIE MARIE MD, OFFICE VISIT Jessie hernandez, [facility] 6 14:51:34 Patient status finding 102605080 Active 2013 Jessie marie null, [facility] 6 14:51:33 Pre-surg earnest evaluati on Completed 201210/12/2013 RECORDED 07/18/19 13 2:40PM BY KATHYA CONNELLY MA, ANNOTATI ON/ Jessie marie null, [facility] 6 14:51:34 Eruption [id number] Completed 201210/12/2013 STORY: NEG DERM W/U/DEMO S/ NONITCHY , NO TX NEEDED; RECORDED 07/18/19 13 2:40PM BY KATHYA CONNELLY MA, ANNOTATI ON/ Jessie marie null, [facility] 6 14:51:33 Adult health examinat ion Completed 201210/12/2013 RECORDED 07/18/19 13 2:39PM BY KATHYA CONNELLY MA, ANNOTATI ON/ADDEN DUM Jessie D'Alessan frank null, [facility] 6 14:51:34 Acquired trigger finger [id number] Completed 201210/12/2013 RECORDED 07/18/19 13 2:39PM BY KATYHA CONNELLY MA, ANNOTATI ON/ADDEN DUM Jessie D'Alessan frank null, [facility] 6 14:51:33 Acute upper respirat ory infectio n 86759305 Completed 201210/12/2013 RECORDED 07/18/19 13 2:40PM BY KATHYA CONNELLY MA, ANNOTATI ON/ADDEN DUM Jessie D'Alessan frank null, [facility] 6 14:51:33 Urinary tract infectio us disease 75877355 Completed 201210/12/2013 RECORDED 07/18/19 13 2:40PM BY KATHYA CONNELLY MA, ANNOTATI ON/ADDEN DUM Jessie D'Alessan frank null, [facility] 6 14:51:33 Exposure to organism Completed 201310/12/2013 RECORDED 07/31/19 14 2:28PM BY ROSALINDA MURRAY MA, ANNOTATI ON/ADDEN DUM Jessie D'Alessan frank null, [facility] 6 14:51:33 Wound 031321371 Active Jessie Montse'Alessan frank null, [facility] 6 14:51:33 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 038052368 Active Jessie Montse'Alessan frank null, [facility] 6 14:51:33 Polyuria 74625234 Active Jessie Montse'Alessan frank null, [facility] 6 14:51:33 Low back pain 516893727 Active Jessie D'Alessan frank null, [facility] 6 14:51:33 Urinary tract obstruct ion 7790657 Active Jessie marie null, [facility] 6 14:51:33 Body mass index 40+ - severely obese 773450518 Active Jessie marie null, [facility] 6 14:51:34 Disturba nce in sleep behavior 22291952 Active Jessie marie null, [facility] 6 14:51:33 Essentia l hyperten reg 62909327 Active Jessie marie null, [facility] 14:51:33 Vomiting 890025380 Active Jessie marie null, [facility] 14:51:33 Abdomina l pain 71764787 Active Jessie marie null, [facility] 14:51:33 Muscle pain 24155208 Active Jessie marie null, [facility] 14:51:33 Acute pharyngi tis 707923489 Active Jessie marie null, [facility] 14:51:33 Allergic rhinitis 86222740 Active Jessie marie null, [facility] 14:51:33 Sinusiti s 46729611 Active Jessie marie null, [facility] 14:51:33 Cough 57769981 Active Jessie Willard'Stephaniean frank null, [facility] 14:51:33 Dyspnea 305488086 Active Jessie Willard'Benjamin frank null, [facility] 14:51:33 Standard chest X-ray abnormal 671587823 Active Jessie marie null, [facility] 6 14:51:33 Pneumoni a 636602405 Active Alda hernandez [facility] 6 10:51:28 Problem Notes None recorded. Procedures Surgical History Date Name Laterality Status Provider Name and Address Organization Details Recorded Time 06/06/19 17 Most Recent Mammogram completed Yvette Moran [facility] 06/15/2016 11:27:38 06/06/19 17 [facility] 11[facility]27:25 Orthopedic Surgery completed Mirandaherb Mandujano [facility] 01/04/2014 09:17:20 Tonsillectomy completed [facility] 01/04/2014 09:17:20 Tubal Ligation completed [facility] 01/04/2014 09:17:20 Imaging Results Imaging Date Name Status LastModified by Organization Details LastModified Time 06/01/2015 imaging/diagnostic result completed [facility] ([facility] Only) [address] [place] [address], [address], 06/22/2015 16:48:04 08/03/2015 chest 2 views frontal and lat completed onofre [facility] (Centralized Electronic Ordering - All Locations) Patient Can Go To The Location Of Their Choice, [facility] 08/11/2015 16:54:37 08/03/2015 chest 2 views frontal and lat completed onofre [facility] (Outpt Imaging) [address] [place], [address], 08/11/2015 16:54:37 08/03/2015 x-ray, chest, 2 view completed lu z Information not available 08/11/2015 16:54:37 08/09/2015 electrocardiogram completed brigidoditram I n-Office Order Internal Use Only DO Not Attach Compendium DO Not Attach Compendium, Do Not Delete/merge, [id number] 08/11/2015 16:54:37 08/13/2015 chest 2 views frontal and lat completed [email or web address] [facility] (Centralized Electronic Ordering - All Locations) Patient Can Go To The Location Of Their Choice, [id number] 08/19/2015 15:21:49 08/13/2015 chest 2 views frontal and lat completed [facility] ([facility] Imaging) [address] [place], [address], 08/19/2015 15:21:50 06/05/2016 MAMMO, screening, bilateral completed [email or web address] [facility] ([facility] Only) [address] [place], [address], 06/15/2016 11:27:51 Procedure Notes None recorded. Medical Equipment None Reported. Allergies Allergen ID Allergen Name Allergen Category Reaction Reaction Severity Criticality Documentation Date Start Date Code Code System Note Provider Name and Address Organization Details Recorded Time 48113 atorvasta tin medicatio n myalgias (muscle pain) moderate Not available 05/12/2015 95145 RxNorm Shayan hernandez [facility] 6 15:07:45 9408 No known allergy (situatio n) Not available Not available Not available Not available 09/15/20132013 89995 6003 SNOMED COMME NT: RECOR DED 07/30 2:28P M BY FREDO Mendez MA, OFFIC E VISIT ; Shayan hernandez [facility] 6 15:07:45 Medications Name Sig Start Date Stop Date Status Note LastModified by Organization Details LastModified Time freestyle dustin litefrees tyle lite test strips active Not Available Not Available Not Available lantus solostar 100 unit/ml sopn 42 units dailys active Not Available Not Available No t Available humalog kwikpen 100 unit/ml sopn 12 units TID with meals active Not Available Not Available No t Available freestyle kit freedomfr eestyle freedom lite active Not Available Not Available Not Available freestyle dustin lite active Not Available Not Available Not Available lisinopri l 10 mg tabs active Not Available Not Available Not Available amoxicill in 500 mg capsule active Not Available Not Available Not Available azithromy yessenia 250 mg capsule DIRECTED 02/11 completed RECORDED 02/15/20 10 11:10AM BY NAILA CONNELLY PA-C, MEDICATI ON AUTO-AMBER CTIVATIO N;TWO TABS DAY ONE, FOLLOWED BY ONE TAB DAILY DAYS 2-5 Not Available Not Available Not Available atorvasta tin 20 mg tablet DAILY 07/30 completed RECORDED 07/31/19 14 2:43PM BY KATHYA CONNELLY MA, JOSE ALBERTO ON/ADDEN DUM; Not Available Not Available Not Available insulin glargine (U-100) 100 unit/mL subcutane ous solution AT BEDTIME active RECORDED 03/13/19 11 3:27PM BY JOSE ALBERTO WOODSON ON/ADDEN DUM; Not Available Not Available Not Available atorvasta tin 10 mg tablet Take 1 tablet every day by oral route for 90 days. 2014 active Not Available Not Available Not Avai lable ibuprofen 800 mg tablet Take 1 tablet 3 times a day by oral route for 30 days. active Not Available Not Available No t Available ciproflox acin 250 mg tablet TWO TIMES DAILY 07/09 completed RECORDED 07/26/19 10 2:23PM BY CAROL PATRICK MA, MEDICATI ON AUTO-AMBER CTIVATIO N; Not Available Not Available Not Available aspirin 81 mg tablet,de layed release Take 1 tablet every day by oral route for 90 days. active Not Available Not Available No t Available Levothroi d 25 mcg tablet DAILY 07/17 completed RECORDED 07/18/19 13 2:54PM BY KATHYA CONNELLY MA, JOSE ALBERTO ON/ADD DUM; Not Available Not Available Not Available amoxicill in 875 mg tablet Take 1 tablet twice a day by oral route for 10 days. active Not Available Not Available No t Available pravastat in 10 mg tablet Take 1 tablet every day by oral route for 90 days. active Not Available Not Available No t Available simvastat in 20 mg tablet DAILY 06/18 completed RECORDED 06/19/19 14 10:21AM BY JOSE ALBERTO METCALF ON/ADDEN DUM; Not Available Not Available Not Available metformin 1,000 mg tablet TWO TIMES DAILY 05/30 completed RECORDED 05/31/19 10 10:15AM BY JESSIE MARIE MD, JOSE ALBERTO ON/ADD DUM; Not Available Not Available Not Available lisinopri l 10 mg tablet Take 1 tablet every day by oral route for 90 days. active Not Available Not Available No t Available glimepiri de 4 mg tablet TWO TIMES DAILY 06/18 completed RECORDED 06/19/19 14 10:21AM BY JOSE ALBERTO METCALF ON/ADDCELESTE DUM; Not Available Not Available Not Available polymyxin B sulfate 10,000 unit-trim ethoprim 1 mg/mL eye drops EVERY 3 HOURS 02/15 completed RECORDED 02/21/20 11 9:30AM BY NAILA CONNELLY PA-C, MEDICATI ON AUTO-AMBER CTIVATIO N; Not Available Not Available Not Available aspirin 81 mg chewable tablet QD 04/28 completed RECORDED 04/28/19 10 1:12PM BY JESSIE MARIE MD, JOSE ALBERTO ON/ADD DUM; Not Available Not Available Not Available Accu-Chek Compact Test strips BID 04/10 completed RECORDED 04/10/19 11 9:32AM BY JOSE ALBERTO METCALF ON/ADD DUM; Not Available Not Available Not Available Iophen C-NR 10 mg-100 mg/5 mL oral liquid Take 10 mL 3 times a day by oral route for 5 days. active Not Available Not Available No t Available pioglitaz one 30 mg tablet QD 04/28 completed RECORDED 04/28/19 10 1:12PM BY JESSIE MARIE MD, JOSE ALBERTO ON/ADD DUM; Not Available Not Available Not Available fluoxetin e 20 mg capsule DAILY 07/17 completed RECORDED 07/18/19 13 2:53PM BY KATHYA CONNELLY MA, JOSE ALBERTO ON/ADD DUM; Not Available Not Available Not Available fluticaso ne propionat e 50 mcg/actua tion nasal spray,noreen pension Inhale 2 sprays every day by intranas al route for 30 days. active Not Available Not Available No t Available amoxicill in 875 mg-potass ium clavulana te 125 mg tablet TWO TIMES DAILY 06/25 completed RECORDED 08/12/19 08 9:53AM BY YADIRA HENSON, MEDICATI ON AUTO-AMBER CTIVATIO N; Not Available Not Available Not Available Ventolin HFA 90 mcg/actua tion aerosol inhaler Inhale 2 puffs every 4 hours by inhalati on route as needed for 30 days. active Not Available Not Available No t Available albuterol (refill) 90 mcg/actua tion aerosol inhaler THREE TIMES DAILY, NEEDED 04/28 completed RECORDED 04/28/19 10 1:12PM BY JESSIE MARIE MD, ANNOTATI ON/ADDEN DUM;THIS ORDER DISCONTI NUED PER [facility] N. Not Available Not Available Not Available azithromy yessenia 500 mg tablet DAILY 05/19 completed RECORDED 05/24/19 10 3:26PM BY JESSIE MARIE MD, MEDICATI ON AUTO-AMBER CTIVATIO N; Not Available Not Available Not Available Vitamin D3 25 mcg (1,000 unit) capsule Take 1 capsule every day by oral route. active Not Available Not Available No t Available Novolog FlexPen U-100 Insulin aspart 100 unit/mL (3 mL) subcutane ous active Not Available Not Available Not Available darifenac in ER 7.5 mg tablet,ex tended release 24 hr QD 04/28 completed RECORDED 04/28/19 10 12:51PM BY CAROL PATRICK MA, OFFICE VISIT; Not Available Not Available Not Available One-A-Day Womens Formula DAILY active RECORDED 12/20/19 13 3:09PM BY KATHYA CONNELLY MA, OFFICE VISIT; Not Available Not Available Not Available Flonase Q NARES QAM 04/28 completed RECORDED 04/28/19 10 1:12PM BY JESSIE MARIE MD, ANNOTATI ON/ADDEN DUM; Not Available Not Available Not Available Aspirin EC DAILY 2012 active RECORDED 12/20/19 13 3:41PM BY JESSIE MARIE MD, OFFICE VISIT; Not Available Not Available Not Available Dilaudid NEEDED 2009 active RECORDED 03/13/19 11 3:26PM BY MITUL WELLS, YUSUFATI ON/ADDEN DUM; Not Available Not Available Not Available Glucophag e BID 10/08 completed RECORDED 10/09/19 08 9:26AM BY JESSIE MARIE MD, ANNOTATI ON/ADDEN DUM; Not Available Not Available Not Available Guiatuss EVERY 6 HOURS NEEDED FOR COUGH 02/13 completed RECORDED 02/15/20 10 11:10AM BY NAILA CONNELLY PAAnastasia, MEDICATI ON AUTO-AMBER CTIVATIO N; Not Available Not Available Not Available Calcium + D DAILY active RECORDED 12/20/19 13 3:09PM BY KATHYA CONNELLY MA, OFFICE VISIT; Not Available Not Available Not Available Aveeno Daily Moisturiz ing DAILY 08/21 completed RECORDED 08/22/19 12 11:32AM BY MARY MARTINI, YUSUFATI ON/ADD DUM; Not Available Not Available Not Available BD Ultra-Fin e Short Pen Needle 31 gauge x 07/17 active Not Available Not Available Not Available Zostavax (PF) 19,400 unit/0.65 mL subcutane ous suspensio n TYESHA X 1 07/17 completed RECORDED 07/18/19 12 8:10AM BY JESSIE MARIE MD, MEDICATI ON AUTO-AMBER CTIVATIO N; Not Available Not Available Not Available cholecalc iferol (vitamin D3) 25 mcg (1,000 unit) tablet DAILY active RECORDED 07/31/19 14 2:45PM BY KATHYA CONNELLY MA, ANNOTATI ON/ADDEN DUM; Not Available Not Available Not Available FreeStyle Lite Strips Take 1 strip 4 times a day by miscell. route for 90 days. 2014 active Not Available Not Available Not Avai lable Lantus Solostar U-100 Insulin 100 unit/mL (3 mL) subcutane ous pen Inject 36 units every day by subcutan eous route for 90 days. 2014 active Not Available Not Available Not Avai lable Humalog KwikPen (U-100) Insulin 100 unit/mL subcutane ous Inject 8 units 3 times a day by subcutan eous route for 90 days. 2014 active Not Available Not Available Not Avai lable Probiotic active Not Available Not Krystyna ilable Not Available ProAir RespiClic k 90 mcg/actua tion breath activated Inhale 2 puffs every 4 hours by inhalati on route. 2015 active Not Available Not Available Not Avai lable Vitals Date Recorded Body height Body temperature Oxygen saturation Oxygen saturation in Arterial blood by Pulse oximetry Heart rate Body mass index (BMI) Body weight Systolic blood pressure Diastolic blood pressure Provider Name and Address Organization Details Last Updated DateTime 6 160.02 cm 97.6 [degF] 97 % 97 % 76 /min 42 kg/m2 546101. 64669 g 134 mm[Hg] 72 mm[Hg] [facility] 15[facility]46 Date Recorded Body height Heart rate Body temperature Body weight Oxygen saturation Oxygen saturation in Arterial blood by Pulse oximetry Body mass index (BMI) Systolic blood pressure Diastolic blood pressure Provider Name and Address Organization Details Last Updated DateTime 6 160.02 cm 86 /min 97.7 [degF] 797499. 29073 g 97 % 97 % 42.3 kg/m2 156 mm[Hg] 82 mm[Hg] [facility] 6 16:03:32 Date Recorded Body height Body weight Body mass index (BMI) Body temperature Oxygen saturation Oxygen saturation in Arterial blood by Pulse oximetry Heart rate Systolic blood pressure Diastolic blood pressure Provider Name and Address Organization Details Last Updated DateTime 6 160.02 cm 076643. 07313 g 41.3 kg/m2 97.6 [degF] 97 % 97 % 94 /min 132 mm[Hg] 80 mm[Hg] [facility] 6 15:23:55 Date Recorded Body weight Heart rate Oxygen saturation Oxygen saturation in Arterial blood by Pulse oximetry Body temperature Body height Body mass index (BMI) Systolic blood pressure Diastolic blood pressure Provider Name and Address Organization Details Last Updated DateTime 6 490725. 230940 g 108 /min 96 % 96 % 98.1 [degF] 160.02 cm 40.8 kg/m2 113 mm[Hg] 77 mm[Hg] Nanette Lr MA [facility] 6 14:09:10 Date Recorded Body height Body temperature Body mass index (BMI) Body weight Heart rate Oxygen saturation Oxygen saturation in Arterial blood by Pulse oximetry Systolic blood pressure Diastolic blood pressure Provider Name and Address Organization Details Last Updated DateTime 6 160.02 cm 97 [degF] 41.8 kg/m2 838966. 51694 g 92 /min 97 % 97 % 134 mm[Hg] 78 mm[Hg] Shayan Perez [facility] 6 14:23:39 Social History Question Answer Notes LastModified by Organizat ion Details LastModified Time Tobacco Smoking Status Former Smoker Miranda Mandujano MA [facility] 01/04/2014 09:15:52 Do You Have An Advance Directive? No Information not available 11/11/2014 What Is Your Level Of Alcohol Consumption? Occasional Rare Information not available 11/11/2014 Is Blood Transfusion Acceptable In An Emergency? Yes Information not available 11/11/2014 What Is Your Level Of Caffeine Consumption? Moderate Information not available 11/11/2014 How Much Tobacco Do You Chew? None Information not available 11/11/2014 Are You Currently Employed? Yes Information not available 11/11/2014 What Type Of Diet Are You Following? DIABETIC Has Hard Time At Night Information not available 11/11/2014 Which Illicit Or Recreational Drugs Have You Used? 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 Alone Information not available 11/11/2014 Do You Take Precautions To Prevent Distracted Driving? Yes Information not available 11/11/2014 How Often Do You Need To Have Someone Help You When You Read Instructions, Pamphlets, Or Other Written Material From Your Doctor Or Pharmacy? Never Information not available 11/11/2014 How Many Children Do You Have? 2 Information not available 11/11/2014 Seat Belts Used Routinely Yes Information not available 11/11/2014 Are You Sexually Active? No Information not available 11/11/2014 Smoke Alarm In Home Yes Information not available 11/11/2014 At What Age Did You Start Smoking Tobacco? 23 Information not available 11/11/2014 Are You Passively Exposed To Smoke? No Information not available 11/11/2014 How Much Tobacco Do You Smoke? 1 PPD Information not available 11/11/2014 Do You Use Sunscreen Routinely? Yes Information not available 11/11/2014 Sex: Unknown Functional Status Question Answer Note LastModified by Organization D etails LastModified Time Are you able to care for yourself? Yes Information not available 11/11/2014 What is your exercise level? Moderate Information not available 11/11/2014 Mental Status None recorded. Family History Relationship Description Onset Age of this Age Resolved Age Notes LastModified by Organization Details LastModified Time Mother Malignant neoplasm of lung 72 mdalessandro Not available 15:00:12 Father Diabetes mellitus mdalessandro Not available 15:00:12 Maternal Grandmother Malignant neoplasm of lung 64 mdalessandro Not available 15:00:12 Maternal Uncle Malignant neoplasm of lung 36 mdalessandro Not available 15:00:12 Medical History Condition Response Depression Y Diabetes Y Obesity Y Hypertension Y Gynecological History Statement/Question Response Most Recent Mammogram 06/05/2016 Obstetrics History GPAL:G 0 P 0 0 0 0 Immunizations Vaccine Type Date Status Note Provider Nam e and Address Organization Details Recorded Time Influenza, split virus, quadrivalent, PF 5 completed Not Available [facility] 03/21/2019 02:22:01 Pneumococcal conjugate PCV 13 6 completed Not Available [facility] 03/21/2019 02:21:36 Td (adult), 2 Lf tetanus toxoid, preservative free, adsorbed 5 completed Not Available [facility] 09/15/2013 14:08:44 Influenza, split virus, trivalent, preservative 6 completed Not Available [facility] 09/15/2013 14:08:44 Influenza, split virus, trivalent, preservative 9 completed Not Available [facility] 09/15/2013 14:08:44 Novel [id number], all formulations 9 completed Not Available [facility] 09/15/2013 14:08:44 Influenza, split virus, trivalent, preservative 0 completed Not Available [facility] 09/15/2013 14:08:44 Influenza, split virus, trivalent, preservative 1 completed Not Available [facility] 09/15/2013 14:08:44 Tdap 1 completed Not Available [facility] 09/15/2013 14:08:45 pneumococcal polysaccharide PPV23 2 completed Not Available [facility] 09/15/2013 14:08:45 Influenza, split virus, trivalent, preservative 3 completed Not Available [facility] 09/15/2013 14:08:45 Past Encounters Encounter ID Performer Location Encounter Start Date Encounter Closed Date Diagnosis/Indication Diagnosis SNOMED-CT Code Diagnosis ICD10 Code Diagnosis Note [id number] [facility] [address] [id number] [facility] [place] [address] 07/26/2004 00:00:00 [id number] [address] [facility] [place] [address] 03/21/2004 00:00:00 [id number] autoEComm erce [address] [facility],[address] [place] [address] 08/12/2006 00:00:00 [id number] autoEComm erce [address] [facility],[address] [place] [address] 08/24/2006 00:00:00 [id number] autoEComm erce [address] [facility],[address] [place] [address] 06/12/2007 00:00:00 [id number] autoEComm erce [address] [facility],[address] [place] [address] 10/09/2007 00:00:00 [id number] autoEComm erce [address] [facility],[address] [place] [address] 04/28/2009 00:00:00 13030 autoEComm erce [address] [facility] [address] [place] [address] 05/14/2009 00:00:00 82058 [address] [place] [address] 05/30/2009 00:00:00 35[address] [place] [address] 01/10/2010 00:00:00 87403 autoEComm erce [address] [facility] [address] [place] [address] 02/02/2010 00:00:00 52072 autoEComm erce [address] [facility],[address] [place] [address] 02/06/2010 00:00:00 44220 autoEComm erce [address] [facility],[address] [place] [address] 03/13/2010 00:00:00 22228 autoEComm erce [address] [facility],[address] [place] [address] 04/10/2010 00:00:00 63341 autoEComm erce [address] [facility],[address] [place] [address] 06/02/2010 00:00:00 08744 autoEComm erce [address] [facility],[address] [place] [address] 01/09/2011 00:00:00 28304 autoEComm erce [address] [facility],[address] [place] [address] 02/08/2011 00:00:00 05811 autoEComm erce [address] [facility] [address] [place] [address] 07/17/2011 00:00:00 23642 autoEComm erce [address] [facility],[address] [place] [address] 08/20/2011 00:00:00 07569 autoEComm erce [address] [facility],[address] [place], [place] [address] 07/17/2012 00:00:00 63349 auto[address]Comm erce [address] [place] [address],[address] O[place]ia [place], [place] [address] 12/19/2012 00:00:00 55895 [address] [place] [address],[address] [place], [place] [address] 07/30/2013 00:00:00 85352 [address]Comm [address] [place] [address],[address] [place], [place] [address] 02/28/2006 00:00:00 73844 autoEComm theoe [address] [place] [address],[address] [place], [place] [address] 01/02/2005 00:00:00 [id number] Jessie humphreys Main Office [address] [address] [place] [address] 01/04/2014 08:56:20 01/04/2014 09:49:49 Wound [id number] right breast, healing well, reassuranc e given [id number] Miranda Mandujano [place] Main Office [address] [address] [place] [address] 04/06/2014 09:28:24 04/06/2014 10:09:34 Sialoadenitis of the submandibular gland 922129712 no stone obvious. has improved with amox. so likely infection. CT to r/o deep neck space infection. stay on amox [id number] Laura Yancey Main Office [address] [address] [place] [address] 04/09/2014 16:06:47 04/09/2014 16:54:26 Sialoadenitis of the submandibular gland 839006627 unclear cause. almost fully better. if recurs, we will refer to ent Hypothyroidism 35747488 stable. [id number] Rosalinda Murray Main Office [address] [address] [place] [address] 06/19/2014 09:16:39 06/19/2014 10:25:29 Polyuria 82706111 I doubt that she has a bladder infection but instead has polyuria because of increased sugars. She will call [facility] Endo to reestablis as a patient. Low back pain 235325156 pain is possibly arthritis. Will treat with NSAIDs and she will call if it persists. [id number] Miranda Pelletiertanya BAUMAN Main Office [address] [address] [place] [address] 07/05/2014 10:20:40 07/05/2014 11:18:38 Urinary tract obstruction 0822323 she is able to go but just small amounts and only started this AM. will get imaging. likely benign cause. she will call if worsens. Uncontroll ed type 2 diabetes mellitus [id number] she would like to change to dr barreto who she used to see when he was at [facility] Hyperlipidemia 70718063 [id number] Miranda Nazia [place] Main Office [address] [address] [place] [address] 11/11/2014 09:29:19 11/11/2014 10:43:36 Adult health examination 022467969 Uncontroll ed type 2 diabetes mellitus 390961544 Body mass index 40+ - severely obese 257070929 Disturbanc e in sleep behavior 54569961 Needs infl uenza immunization 222301805 Essential hypertension 00517550 [id number] Jessie humphreys Main Office [address] [address] [place] [address] 12/27/2014 10:21:00 12/27/2014 11:12:07 Vomiting 804946199 R11.10 Abdominal pain 74407867 R10.9 pt may have biliary colic but her vomiting is severe enough that she should have GI eval initially [id number] Jessie humphreys Main Office [address] [address] [place] [address] 05/12/2015 14:42:43 05/12/2015 15:55:41 Essential hypertension 82646509 I10 Hyperlipidemia 57315069 E78.5 Hypothyroidism 01521708 E03.9 Uncontroll ed type 2 diabetes mellitus 343116031 E11.65 Muscle pain 10312959 M79 .1 [id number] Estevan Dixon MD Main Office [address] [address] [place] [address] 06/22/2015 15:27:45 06/22/2015 16:28:42 Acute pharyngitis 174491198 J02.9 viral infection vs PND from allergies; advised ibuprofen and will treat allergies with flonase Allergic rhinitis 701379 04 J30.9 this may be causing her sore throat and to wake early in the am secondary to PND. [id number] Paula Boss Main Office [address] [facility] [address] [place] [address] 06/27/2015 15:07:00 06/27/2015 16:14:31 Sinusitis 92075130 J32.9 Cough 98883018 R05 Uncontroll ed type 2 diabetes mellitus 597681344 E11.65 [id number] Lizett chen Main Office [address] [facility] [address] [place] [address] 08/03/2015 13:55:08 08/03/2015 15:29:20 Dyspnea 241885743 R06.00 see above, respirator y cause Cough 85268460 R05 pt with bronchospa sm, nice response to UD, pt will get tx as below and followup with her primary Allergic rhinitis 058997 04 J30.9 [id number] Jessie humphreys Main Office [address] [facility] [address] [facility] [place] [address] 08/19/2015 13:58:44 08/19/2015 15:24:39 Pneumonia 357309768 J18.9 resolving slowly Screening for malignant neoplasm of lung 720947442 Z12.2 Family his tory of malignant neoplasm of lung 282760949 Z80.1 Administra tion of pneumococcal vaccine 23579743 Z23 Health Concerns Section Related Observation LastModified by Organization Detai ls LastModified Time None Recorded Concern Status LastModified by Organization Details LastModified Time None Recorded Advance Directives Directive N: Payers Encounter Date Sequence Insurance Name Policy Number Policy Florentino Covered Member ID Florentino Member ID Guarantor Name 05/12/2015 1 [facility]) [id number] 64 Kelsy L L Mcintosh [id number] Kelsy L Mcintosh 06/22/2015 1 [facility] ([facility] [id number] 64 Kelsy L L Mcintosh [id number] Kelsy L Mcintosh 06/27/2015 1 [facility]) [id number] 65 Kelsy L L Mcintosh [id number] Kelsy L Mcintosh 08/03/2015 1 [facility] ([facility]) [id number] 64 Kelsy Buenotte [id number] Kelsy Schaeffer 08/19/2015 1 [facility] ([facility] [id number] 64 Kelsy Buenotte [id number] Kelsy Schaeffer Notes Date Note Type Note Provider Name and Address Organization Details Recorded Time 05/12/19 16 text/htm l Diabetes F/UReported bypatient.Context:checking feet regularly; taking aspirin daily; not missing doses of medications; no side effects from medications Associated Symptoms:no weight loss; no confusion; no increased appetite;weight gain (10 lbs); pt had vomiting illness in december last time weight checkedHyperlipidemiaReported bypatient.Duration:chronic Control:usually poorly controlled; pt gets myalgias w/ atorvastatin. see plan for alternative statin Compliance:does not exercise Complications:no coronary artery disease Risk Factors:obesityHypertension F/UReported bypatient.Associated Symptoms:no dizziness; no lightheadedness; no chest pain Lifestyle:limiting/avoiding salt;not exercising regularly Medications:taking medications as directed; no side effects from medicationThyroidReported bypatient.Severity:mild Onset/Timing:gradual; pt was on thryoid meds for years. last TSH was mildly abnl. Context:history of hypothyroidism; pt may need medication but I will defer to Endo for this decision based on updated labs Associated Symptoms:no cold intolerance; no heat intolerance; no hoarseness; no deepening of the voice; no fast heart rate; no palpitations Jessie hernandez, [facility] [place] 05/12/2015 17:17:48 06/22/19 16 text/htm l Throat PainReported bypatient.Location:bilateral Quality:sharp; aching Severity:moderate Duration:started 4 days ago Onset/Timing:gradualNotes:No f/c; pain is worse in the middle of the night. Has some nasal congestion. Has not taken any meds. Estevan Dixon MD [address], [address], [facility] [place] 06/22/2015 16:48:22 06/27/19 16 text/htm l CoughReported bypatient.Severity:moderate Context:non-smoker Associated Symptoms:no fever; no chills; no vomiting;post nasal dripDiabetes F/UReported bypatient.Context:not missing doses of medications Associated Symptoms:no confusion; no increased thirst; no increased appetite;weight gain (6 lbs);sweats; due to recent illness. see planUpper Respiratory SymptomsReported bypatient.Severity:mild Context:sick contact Associated Symptoms:no shortness of breath;fatigue;sore throat Jessie hernandez [facility] 06/27/2015 16:10:07 08/03/19 16 text/htm l Pt notes a mild intermittant cough over the winter but since 06/17 she has a cough. PT notes in 06/17 she had a sore throat and then was treated for sinusitis. PT notes she continues to cough in spasms, she can talk in full sentences and is not sob butr when she gets coughing she coughs in spasms. Pt started seasonal allergy medicine yesterday, no fevers, notes she feels jittery inside. The other day she had 2 days of diarrhea, that resolved. Pt is not sure if she has a hx of asthma,. no inhalers. A few eyars ago used an inhaler with a URI. No swelling in ankles, no CP or dizziness. Lizett hernandez [facility] 08/11/2015 16:54:46 08/19/19 16 text/htm l CoughReported bypatient.Quality:harsh Severity:improving Duration:intermittent Timing:better Context:non-smoker; pt has remote smoking hx approx 25-30 yrs ago Modifying Factors:inhaler Associated Symptoms:no chest pain; no heartburn; no nausea; no vomiting; no agitation;fever; pt reports low grade fevers over past 2 weeksGeneric HPI TemplateReported bypatient.Severity:pt has very strong FH of lung cancer and with her remote smoking hx she agrees to lung cancer screening Duration:For past two weeks pt has slowly improved from her probable viral pneumonia. see CXR reports Jessie hernandez [facility] 08/19/2015 16:38:46 OBGyn Episode No OBEpisode recorded.
--- OUTSIDE RECORDS SUMMARY | 2024-06-30 12:21 | XMS_ITS | Clinical Summary ---
[facility] Address [address] [place] [address] Care Team Providers Care Riding Double Name Role Phone Brigitte Conn MD Primary Care Provider [phone] Surgical History Surgery Date Site/Laterality Comments TUBAL LIGATION 03/04/1975 PROCEDURE: HISTORICAL TUBAL LIGATION TONSILLECTOMY 03/04/1953 PROCEDURE: HISTORICAL TONSILLECTOMY TOTAL KNEE ARTHROPLASTY 2004, 2009 Bilateral PROCEDURE: HISTORICAL TOTAL KNEE REPLACE LEG SURGERY 10/07/2020 Right PROCEDURE: HISTORICAL LEG SURGERY; COMMENT: closed repair right femoral neck fracture JOINT REPLACEMENT PROCEDURE:JOINT REPLACEMENT;COMMENT:bilateral knee replacement TONSILLECTOMY PROCEDURE:TONSILLECTOMY HIP ARTHROPLASTY 10/09/2020 Right PROCEDURE:HIP ARTHROPLASTY;COMMENT:Procedure: HEMIARTHROPLASTY HIP; Surgeon: Rafael Best MD; Location: 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 Insomnia 02/08/2016 DX:Insomnia Low back pain 02/08/2016 DX:Low back pain Diverticulosis of colon 02/08/2016 DX:Diver ticulosis of colon Diabetes mellitus with renal manifestations, uncontrolled 08/18/2014 DX:Diabetes mellitus with renal manifestations, uncontrolled; COMMENT: paulo sexton Status post total knee repla cement, bilateral 02/08/2016 DX:Status post total knee replacement, bilateral; COMMENT: OA Microalbuminuria 02/08/2016 DX:Microalbumin uria RAD (reactive airway disease) DX :RAD (reactive airway disease) History of fracture of right hip 10/11/2020 DX:History of fracture of right hip Diabetes mellitus type 2, un complicated ([facility] V24, [facility] V28) 08/18/2014 DX:Diabetes mellitus type 2 , uncomplicated (HCC); COMMENT: paulo sexton, Dr. Haines Diabetes mellitus ([facility] V 24, [facility] V28) DX:Diabetes mellitus (HCC) Disease of thyroid gland DX:Dise ase of thyroid gland TIA (transient ischemic attack) DX:TIA (transient ischemic attack) Family History Medical History Relation Name Comments Diabetes Father Lung cancer Maternal Grandmother ag e 64 Lung cancer Mother age 72 Lung cancer Uncle Maternal uncle Breast cancer Neg Hx Relation Name Status Comments Father Maternal Grandmother Mother Uncle Social History Tobacco Use Types Packs/Day Years Used Date Smoking Tobacco: Former Cigarettes Q uit: 03/09/1992 Smokeless Tobacco: Never Quit: 03/09/1992 Alcohol Use Standard Drinks/Week Comments Not Currently 0 (1 standard drink = 0.6 oz pur e alcohol) Comments Unknown Sex and Gender Information Value Date Recorded Sex Assigned at Not on file Legal Sex Female 10:09 PM EST Gender Identity Not on file Sexual Orientation Not on file Obstetrics History Last Filed Vital Signs Vital Sign Reading Time Taken Comments Blood Pressure - - Pulse 72 07/10/2021 1:39 PM EDT Temperature - - Respiratory Rate - - Oxygen Saturation - - Inhaled Oxygen Concentration - - Weight 89.8 kg (198 lb) 07/10/2021 1:39 PM EDT Height 157.5 cm (5' 2 ) 07/10/2021 1:39 PM EDT Body Mass Index 36.21 07/10/2021 1:39 PM EDT Plan of Treatment Health Maintenance Due Date Last Done Comments Diabetes: Annual Foot Exam 12/04/1959 Diabetes: Annual Retina Eye Exam 12/04/1959 Zoster Vaccines (1 of 2) 12/04/1999 RSV Immunization Adult Patients (1 - Risk 60-74 years 1-dose series) 2009 Diabetes: Annual GFR (Glomerular Filtration Rate) 10/11/2021 10/11/2020, 10/10/2020, 10/09/2020, Additional history exists Cholesterol Screening (Lipid Panel) 02/03/2022 Colorectal Cancer Screening: Colonoscopy 02/03/2022 Depression Screening 02/03/2022 Falls Risk Assessment 02/03/2022 Hepatitis C Screening 02/03/2022 Osteoporosis Screening (Bone Density Screening) 02/03/2022 Social Influencers of Health Screening 02/03/2022 Diabetes: Annual Urine Albumin-Creatinine Ratio (uACR) 02/17/2022 Diabetes: Blood Sugar Control Test (HGBA1C) 02/17/2022 10/08/2020 Hypertension/CHF/CAD Annual BMP Blood Test 02/17/2022 10/11/2020, 10/10/2020, 10/09/2020, Additional history exists COVID-19 Vaccine ( season) 2023 DTaP,Tdap,and Td Vaccines (4 - Td or Tdap) 08/17/2024 08/17/2014, 12/02/2010, 01/09/2005 Influenza Vaccine (Season Ended) 2024 11/11/2014, 11/13/2012, 11/22/2011, Additional history exists Breast Cancer Screening 04/15/2025 04/15/19 24, 08/02/2021, 07/22/2020, Additional history exists Pneumococcal Vaccine: 50+ Years Completed 01/29/2017, 08/18/2014, 07/17/2011 HIB Vaccines Aged Out No longer eligi ble based on patient's age to complete this topic HPV Vaccines Aged Out No longer eligi ble based on patient's age to complete this topic Hepatitis A Vaccines Aged Out No long er eligible based on patient's age to complete this topic Hepatitis B Vaccines Aged Out No long er eligible based on patient's age to complete this topic IPV Vaccines Aged Out No longer eligi ble based on patient's age to complete this topic MMR Vaccines Aged Out No longer eligi ble based on patient's age to complete this topic Meningococcal ACWY Vaccine Aged Out N o longer eligible based on patient's age to complete this topic Meningococcal B Vaccine Aged Out No l onger eligible based on patient's age to complete this topic RSV Immunization Patients Under 20 months Aged Out No longer eligible based on patient's age to complete this topic Varicella Vaccines Aged Out No longer eligible based on patient's age to complete this topic Medical Devices Implanted Type Area Cellular Phone Repairer Device Identifier Shelf Expiration Date Model / Serial / Lot Uhr Two Dot Head Bipolar Component Implanted:Qty: 1 on 10/09/2020 by Rafael Best MD Joints Right: Hip [employer] 06/07/2025 [id number] / / [id number] Size 4 Accolade Ii 127 Deg Stry-How [id number] Implanted:Qty: 1 on 10/09/2020 by Rafael Best MD Joints Right: Hip [employer] 08/29/2025 [id number] / / [id number] Hip Hd Cocr V40 Lfit 26mm 0 Stry-How [id number] Implanted:Qty: 1 on 10/09/2020 by Rafael Best MD Joints Right: Hip [employer] 08/10/2025 [id number] / / [id number] Procedures Procedure Name Priority Date/Time Associated Diagnosis Comments [facility] SCREENING DIGITAL Routine 04/15/2023 10:02 AM EST Encounter for screening mammogram for malignant neoplasm of breast from Last 3 Months or Most Recently Relevant to Health Maintenance Results * [facility] SCREENING DIGITAL (04/15/2023 10:02 AM EST) Anatomical Region Laterality Modality Mammography 04/15/2023 9:17 AM EST Narrative 04/15/2023 10:02 AM EST [facility] Diagnostic Imaging Department [address] [place], [place] [id number] Patient: ??LAVALETTE,KELSY L ?/Age/Sex: 1950 - 72 - F Unit#: ??[id number] ? Location/Status: ??SPDIMAM/REG CLI ? Mnemonic/Ordering Site: ??DIGSC/SPMAM Ordering Physician: ??BRIGITTE CONN MD [facility] Screening Digital - 04/15/23 - 939 Report Status:Signed EXAM: [facility] Screening Digital EXAM DATE AND TIME: 04/15/2023 9:41 AM HISTORY: ??Annual screening COMPARISON: ??Multiple exams dating back to 2016 TECHNIQUE: Bilateral digital breast tomosynthesis was performed in the CC and MLO projections. Computer aided detection with Glowing Plant 3D 3.1 was employed. TISSUE DENSITY: b. There are scattered areas of fibroglandular density. FINDINGS: No suspicious masses, grouped microcalcifications, or areas of architectural distortion are seen. The skin and vascularity are unremarkable. IMPRESSION: Stable mammographic appearance of the breasts. ??No evidence of malignancy is seen. A negative mammogram in the presence of a clinically suspicious palpable abnormality does not preclude the possibility of malignancy or alter the indications for biopsy. BI-RADS: ??Category 1: Negative RECOMMENDATION(S): 1: Routine screening mammogram BILATERAL in 1 year. 3341F, 7025F Dictating Physician: ??NASIR BENOIT MD Electronically Signed by: ??NASIR BENOIT MD Dic Date/Time: ??04/15/23 1001 Sign date/Time: ??04/15/23 1002 Procedure Note Nasir Benoit MD - 10/21/2023 [facility] Diagnostic Imaging Department [address] [place] [address] [id number] Patient: KELSY AMADOR /Age/Sex: 1950 - 72 - F Unit#: [id number] Location/Status: SPDIMAM/REG CLI Mnemonic/Ordering Site: [facility] Ordering Physician: BRIGITTE CONN MD [facility] Screening Digital - 04/15/23 - 939 Report Status:Signed EXAM: [facility] Screening Digital EXAM DATE AND TIME: 04/15/2023 9:41 AM HISTORY: Annual screening COMPARISON: Multiple exams dating back to 2016 TECHNIQUE: Bilateral digital breast tomosynthesis was performed in the CCand MLO projections. Computer aided detection with Glow[employer] Plant 3D 3.1was employed. TISSUE DENSITY: b. There are scattered areas of fibroglandular density. FINDINGS: No suspicious masses, grouped microcalcifications, or areas ofarchitectural distortion are seen. The skin and vascularity are unremarkable. IMPRESSION: Stable mammographic appearance of the breasts. No evidence of malignancyis seen. A negative mammogram in the presence of a clinically suspicious palpable abnormality does not preclude the possibility of malignancy or alter the indications for biopsy. BI-RADS: Category 1: Negative RECOMMENDATION(S): 1: Routine screening mammogram BILATERAL in 1 year. 3341F, 7025F Dictating Physician: NASIR BENOIT MD Electronically Signed by: NASIR BENOIT MD Dic Date/Time: 04/15/23 1001 Sign date/Time: 04/15/23 1002 Brigitte Conn MD IMG BI PROCEDURES Final Result from Last 3 Months or Most Recently Relevant to Health Maintenance Advance Directives Documents on File Type Date Recorded Patient Cleaner Housekeeping Expl anation Health Care Decision (hx) 09/30/2016 AD CROW DIRECTIVE Health Care Decision (hx) 09/30/2016 AD CROW DIRECTIVE Health Care Decision (hx) 09/30/2016 AD CROW DIRECTIVE Health Care Decision (hx) 09/30/2016 AD CROW DIRECTIVE Health Care Decision (hx) 09/30/2016 AD CROW DIRECTIVE Health Care Decision (hx) 09/30/2016 AD CROW DIRECTIVE Health Care Decision (hx) 09/30/2016 AD CROW DIRECTIVE Health Care Decision (hx) 09/30/2016 AD CROW DIRECTIVE Care Teams Riding Double Relationship Specialty Start Date End Date Brigitte Conn MD PCP - General Internal Medicine 02/05/19
== END 2024-06-30 10:42 | disposition home or self-care (01) ==
LOC: HO.HAP 10:41
DX: Z13.89 Encounter for screening for other disorder (principal)

== ENCOUNTER 2024-10-13 13:34 | Outpatient (REF) | payer SELFPAY ==
--- OUTSIDE RECORDS SUMMARY | 2024-10-13 14:24 | XMS_ITS | Clinical Summary ---
Author Organization [facility] Address [address] [place] [address] Care Team Providers Care Poured Pipe Maker Name Role Phone Brigitte Conn MD Primary Care Provider [phone] Allergies Active Allergy Reactions Criticality Noted Date [...] 72 07/10/2021 1:39 PM EDT Temperature 36.4 C (97.5 F) 07/10/2021 1:39 PM EDT Respiratory Rate 20 10/11/2020 7:40 AM EDT [...] Vaccine ( season) 2023 12/27/2020, 06/10/2020, 05/20/2020 DTap / Tdap / Td (3 - Td or Tdap) 08/17/2024 08/17/2014, 12/02/2010, 01/09/2005 Influenza Vaccine (#1) 2024 , 11/20/2019, 11/20/2019, Additional history exists RSV Adult > 60+ Yrs or (1 [...] this topic Medical Devices Implanted Type Area Blacking Wheel Tender Device Identifier Shelf Expiration Date Model / Serial / Lot Uhr Lewis Head Bipolar Component Implanted:Qty: 1 on 10/09/2020 by Rafael Best MD at [facility] Location Total Joint Right: Hip [employer] 06/07/2025 UH1-47-26 / / [id number] Size 4 Accolade Ii 127 Deg Stry-Howm [id number] - [id number] Implanted:Qty: 1 on 10/09/2020 by Rafael Best MD at [facility] Location Total Joint Right: Hip [employer] 08/29/2025 1460-9069 / / [id number] Hip Hd Cocr V40 Lfit 26mm 0 Stry-Howm [id number] - [id number] Implanted:Qty: 1 on 10/09/2020 by Rafael Best MD at [facility] Location Total Joint Right: Hip [employer] 08/10/2025 6260-9-126 / / [id number] Advance Directives For more information, please contact: [phone] Latest Code Status on File Code Status [...] in the following way:discussed . Care Teams Poured Pipe Maker Relationship Specialty Start Date End Date Brigitte Conn MD PCP - General Internal Medicine 10/07/20
--- OUTSIDE RECORDS SUMMARY | 2024-10-13 14:24 | XMS_ITS | Clinical Summary ---
Author Organization [facility] Address [address] [place] [phone] Phone Care Team Providers Care Medical Imaging Tech Name Role Phone Princess Lopez Primary Care Provider Encounters Date Type Department Care Team Description 08/27/2024 8:31 AM EDT - 08/27/2024 11:59 PM EDT Hospital [facility]counter [facility] at [address] [phone] Encounter for screening mammogram for breast cancer Discharge Disposition: Home or Self Care from Last 3 Months Surgical History Surgery Date Site/Laterality Comments TUBAL [...] HEMIARTHROPLASTY HIP; Surgeon: Rafael Best MD; Location: [facility]; Service: Orthopedics; Laterality: Right; Medical History [...] hip Diabetes mellitus type 2, un complicated [place] [facility] [place] 08/18/2014 DX:Diabetes mellitus type 2 , uncomplicated ([facility]); COMMENT: warrenDr. Yancy foster Diabetes mellitus [place] [place] [facility] [place] [facility] [place] DX:Diabetes mellitus (HCC) Disease of thyroid [...] = 0.6 oz pur e alcohol) Comments No Sex and Gender Information Value Date Recorded Sex Assigned at Not on file Legal Sex Female 10:09 PM EST Gender Identity Not on file Sexual Orientation Not on file Obstetrics History Para Term AB IAB SAB Ectopic Multiple Livin g Live Births 2 Last Filed Vital Signs Vital Sign Reading Time Taken Comments Blood Pressure - - Pulse 72 07/10/2021 1:39 PM EDT Temperature - - Respiratory Rate - - Oxygen Saturation - - Inhaled Oxygen Concentration - - Weight 83.9 kg (185 lb) 08/27/2024 8:41 AM EDT Height 157.5 cm (5' 2 ) 08/27/2024 8:41 AM EDT Body Mass Index 33.84 08/27/2024 8:41 AM EDT Plan of Treatment Health Maintenance Due Date Last Done Comments Diabetes: Annual Foot Exam 12/04/1959 Diabetes: Annual Retina Eye Exam 12/04/1959 RSV Immunization Adult Patients (1 - Risk 60-74 years 1-dose series) 2009 Diabetes: Annual GFR (Glomerular Filtration Rate) 10/11/2021 10/11/2020, 10/10/2020, 10/09/2020, Additional history exists Cholesterol Screening (Lipid Panel) 02/03/2022 Colorectal Cancer Screening: Colonoscopy 02/03/2022 Falls Risk Assessment 02/03/2022 Hepatitis C Screening 02/03/2022 Medicare Annual Wellness Visit 02/03/2022 Osteoporosis Screening (Bone Density Screening) 02/03/2022 Social Influencers of Health Screening 02/03/2022 Diabetes: Annual Urine Albumin-Creatinine Ratio (uACR) 02/17/2022 Diabetes: Blood Sugar Control Test (HGBA1C) 02/17/2022 10/08/2020 Hypertension/CHF/CAD Annual BMP Blood Test 02/17/2022 10/11/2020, 10/10/2020, 10/09/2020, Additional history exists COVID-19 Vaccine ( season) 2023 12/29/2022, 12/14/2021, 12/27/2020, Additional history exists Depression Screening 03/04/2024 DTaP,Tdap,and Td Vaccines (4 - Td or Tdap) 08/17/2024 08/17/2014, 12/02/2010, 01/09/2005 Influenza Vaccine (#1) 2024 , 12/14/2021, 12/01/2020, Additional history exists Breast Cancer Screening 08/27/2026 08/28/19, 04/15/2023, 08/02/2021, Additional history exists Pneumococcal Vaccine: 50+ Years Completed 01/29/2017, 08/19/2015, 08/18/2014, Additional history exists Zoster Vaccines Completed 06/02/2021, 02/01, 07/14/2016 HIB Vaccines Aged Out No longer eligi [...] this topic Medical Devices Implanted 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 Shelf Expiration Date Model / Serial / Lot Uhr Nickerson Head Bipolar Component Implanted:Qty: 1 on 10/09/2020 by Rafael Best MD Joints Right: Hip [employer] 06/07/2025 UH1-47-26 / / [id number] Size 4 Accolade Ii 127 Deg Stry-How [id number] Implanted:Qty: 1 on 10/09/2020 by Rafael Best MD Joints Right: Hip [employer] 08/29/2025 [id number] / / [id number] Hip Hd Cocr V40 Lfit 26mm 0 Stry-How [id number] Implanted:Qty: 1 on 10/09/2020 by Rafael Best MD Joints Right: Hip [employer] 08/10/2025 6260-9-126 / / [id number] Procedures Procedure Name Priority Date/Time Associated Diagnosis Comments MG MAMMO DIGITAL SCREENING W PRICE BILAT Routine 08/27/2024 8:47 AM EDT Encounter for screening mammogram for breast cancer from Last 3 Months Results * MG Mammo Digital Screening w Price bilat (08/27/2024 8:47 AM EDT) Anatomical Region Laterality Modality Breast Bilateral Mammography 08/27/2024 12:1 9 PM EDT Impressions 08/27/2024 12:30 PM EDT No evidence of breast malignancy. BI-RADS CATEGORY: 1 - NEGATIVE RECOMMENDATION: Screening bilateral mammogram is recommended in 1 year. Mammo Location: [facility], [address] [place] [address], [phone], . -------- FINAL REPORT -------- Dictated By: Chaya Herrera Dictated Date: 08/27/2024 12:19 ET Assigned Physician: Chaya Herrera Reviewed and Electronically Signed By: Chaya Herrera Signed Date: 08/27/2024 12:30 ET Workstation ID: [id number] Transcribed By: Self Edit Transcribed Date: 08/27/2024 12:19 ET Narrative 08/27/2024 12:30 PM EDT CLINICAL: 73 years old, Female, routine annual exam. COMPARISON: 04/15/2023, 08/02/2021, 07/22/2020 and 05/21/2019 TECHNIQUE: Bilateral MLO and CC views were obtained digitally with 3-D mammogram (digital breast tomosynthesis). Computer-aided detection was utilized in evaluation of this exam (CAD). FINDINGS: There is no evidence of suspicious mass or architectural distortion. No worrisome calcifications are evident. There has been no significant change from prior exam(s). hall monitor in the medial left breast. BREAST DENSITY: B - There are scattered areas of fibroglandular density. Procedure Note Chaya Herrera MD - 08/27/2024 CLINICAL: 73 years old, Female, routine annual exam. COMPARISON: 04/15/2023, 08/02/2021, 07/22/2020 and 05/21/2019 TECHNIQUE: Bilateral MLO and CC views were obtained digitally with 3-Dmammogram (digital breast tomosynthesis). Computer-aided detection wasutilized in evaluation of this exam (CAD). FINDINGS: There is no evidence of suspicious mass or architectural distortion. Noworrisome calcifications are evident. There has been no significantchange from prior exam(s). hall monitor in the medial leftbreast. BREAST DENSITY: B - There are scattered areas of fibroglandular density. IMPRESSION: No evidence of breast malignancy. BI-RADS CATEGORY: 1 - NEGATIVE RECOMMENDATION: Screening bilateral mammogram is recommended in 1 year. Mammo Location: [facility], [address] [place] [address], [id number], . -------- FINAL REPORT -------- Dictated By: Chaya Herrera Dictated Date: 08/27/2024 12:19 ET Assigned Physician: Chaya Herrera Reviewed and Electronically Signed By: Chaya Herrera Signed Date: 08/27/2024 12:30 ET Workstation ID: [id number] Transcribed By: Self Edit Transcribed Date: 08/27/2024 12:19 ET us Self Referral Sppl IMG BI PROCEDURES Final Resul t from Last 3 Months Insurance MEDICA[place] MED[place] ADVANTAGE Advance Directives Documents on File Type Date Recorded Patient Linen Tech Expl anation Health Care Decision (hx) 09/30/2016 [...] (hx) 09/30/2016 AD CROW DIRECTIVE Care Teams Medical Imaging Tech Relationship Specialty Start Date End Date Princess Lopez PA [address] [place] [phone] PCP - General 08/05/24
== END 2024-10-13 13:35 | disposition home or self-care (01) ==
LOC: HO.HAP 13:34
DX: Z13.89 Encounter for screening for other disorder (principal)